=== PATIENT | male | born 1930 | race Caucasian/White ===

== ENCOUNTER 2017-12-20 13:00 | Inpatient (IN) | payer MEDICARE, OTHER ==
[~2017-12-20] VITALS: Ht 162.6 cm; Wt 67.1 kg
[2017-12-20] VITALS (7 sets, daily range): BP systolic 118–164; BP diastolic 47–72
[2017-12-20 13:27] LABS: APPEARANCE,URINE SLIGHTLY CLOUDY; BILIRUBIN, URINE NEGATIVE (NEGATIVE); GLUCOSE, URINE (UA) NEGATIVE (NEGATIVE); KETONES,URINE NEGATIVE (NEGATIVE); LEUKOCYTE ESTERASE ,URINE 3+ (NEGATIVE); NITRITE,URINE POSITIVE (NEGATIVE); PH,URINE 6.5 (4.5-8.0); PROTEIN,URINE 2+ (NEGATIVE); UROBILINOGEN,URINE NORMAL MG/DL (0.0-1.0)
[2017-12-20 13:31] LABS: BASOPHILS % (AUTO) 0.6 % (0.0-2.0); EOSINOPHILS % (AUTO) 0.1 % (0.0-3.0); HEMATOCRIT 36.7 % (42.0-52.0); HEMOGLOBIN 10.4 G/DL (14.2-18.0); LYMPHOCYTES % (AUTO) 8.5 % (20.0-45.0); MEAN CORPUSCULAR VOLUME 73 FL (80-99); MONOCYTES % (AUTO) 6.1 % (1.0-10.0); NEUTROPHILS % (AUTO) 84.7 % (45.0-75.0); PLATELET COUNT 204 K/UL (150-450); RED BLOOD COUNT 5.03 M/UL (4.70-6.10); RED CELL DISTRIBUTION WIDTH 19.6 % (11.6-14.8); WHITE BLOOD COUNT 8.5 K/UL (4.8-10.8)
[2017-12-20 13:34] LABS: COLOR,URINE YELLOW
[2017-12-20 13:40] LABS: ANION GAP 10 mmol/L (5-15); BLOOD UREA NITROGEN 25 mg/dL (7-18); CALCIUM 9.4 MG/DL (8.5-10.1); CARBON DIOXIDE 24 MMOL/L (21-32); CHLORIDE 102 MMOL/L (98-107); CREATININE 1.1 MG/DL (0.55-1.30); POTASSIUM 4.2 MMOL/L (3.5-5.1); SODIUM 136 MMOL/L (136-145)
[2017-12-20] MEDS ORDERED: Acetaminophen 650 MG SUPP RECTAL ONE (13:45)
[2017-12-20] MEDS ORDERED: cefTRIAXone 1 GM in NS 55 ML IVPB ONE (13:45)
[2017-12-20 13:54] LABS: ALANINE AMINOTRANSFERASE 26 U/L (12-78); ALBUMIN 3.1 G/DL (3.4-5.0); ALBUMIN/GLOBULIN RATIO 0.7 (1.0-2.7); ALKALINE PHOSPHATASE 114 U/L (46-116); ASPARTATE AMINO TRANSFERASE 25 U/L (15-37); BILIRUBIN,TOTAL 0.9 MG/DL (0.2-1.0); CKMB 0.5 NG/ML (0.0-3.6); CREATINE KINASE 67 U/L (26-308); PHOSPHORUS 2.9 MG/DL (2.5-4.9)
[2017-12-20] MEDS ORDERED: Morphine Sulfate 2mg/ml Inj IVP PRN (15:15)
[2017-12-20] MEDS ORDERED: Albuterol/Ipratropium 3ml neb HHN PRN (15:15)
[2017-12-20] MEDS ORDERED: Miralax 17gm pkt ORAL PRN (15:15)
--- NOTE | 2017-12-20 15:16 | Diagnostic Imaging Report ---
Indications: Altered level of consciousness Technique: Spiral acquisitions obtained through the brain. Angled axial and coronal 5 x 5 mm slices were reconstructed. Total dose length product 1284.6 mGycm. CTDI vol(s) 70.38 mGy. Dose reduction achieved using automated exposure control Comparison: None. Findings: There is age-related enlargement of the ventricles and extra axial CSF spaces. Cortical calcifications are seen in the parasagittal parietal lobes bilaterally. Old lacunar infarcts are seen in the basal ganglia bilaterally. No definite acute intracranial hemorrhage or edema, mass effect, nor midline shift. There is periventricular deep white matter low-attenuation consistent with chronic ischemic change. The calvarium is intact. The mastoids are clear. There is minimal ethmoid sinus disease. Visualized orbits are unremarkable. Impression: Chronic and age-related changes. Negative for acute intracranial bleed or mass effect Old bilateral basal ganglia lacunar infarcts Calcifications within the bilateral posterior parietal lobes, probably dystrophic The CT scanner at [facility] is accredited by the [employer] and the scans are performed using protocols designed to limit radiation exposure to as low as reasonably achievable to attain images of sufficient resolution adequate for diagnostic evaluation.
[2017-12-20] MEDS ORDERED: AVODART0.5 MG ORAL (15:28)
[2017-12-20] MEDS ORDERED: BICALUTAMIDE50 MG ORAL (15:28)
[2017-12-20] MEDS ORDERED: TAMSULOSIN HCL0.4 MG ORAL (15:28)
[2017-12-20] MEDS ORDERED: NAMENDA5 MG ORAL (15:28)
[2017-12-20] MEDS ORDERED: DONEPEZIL HCL10 MG ORAL (15:28)
[2017-12-20] MEDS ORDERED: SODIUM CHLORID ORAL (15:28)
[2017-12-20] MEDS ORDERED: FOLIC ACID1 MG ORAL (15:28)
[2017-12-20] MEDS ORDERED: VITAMIN E400 UNI8 PO (15:28)
--- NOTE | 2017-12-20 15:41 | Emergency Room Report ---
History of Present Illness General Chief Complaint: Altered Level of Consciousness Source: Patient, EMS Present Illness HPI Patient is brought in from home. His states that he is less responsive than usual this morning. He normally is verbal but with very severe dementia. She states she was nonverbal today. The patient is unable to give any sort of history. There are no other complaints. Allergies: Coded Allergies: No Known Allergies (Unverified , 12/20/17) Patient History Past Medical History: see triage record, HTN, dementia, other - prostate ca Social History: Denies: smoking, alcohol use, drug use Reviewed Nursing Documentation: PMH: Agreed; PSxH: Agreed Nursing Documentation-PMH Past Medical History: No History, Except For Hx Hypertension: Yes Review of Systems All Other Systems: limited Physical Exam Vital Signs Date Time Temp Pulse Resp B/P (MAP) Pulse Ox O2 Delivery O2 Flow Rate FiO2 12/20/17 12:53 97.0 106 20 150/74 99 Room Air 97.0 Sp02 EP Interpretation: reviewed, normal General Appearance: no apparent distress, GCS 15, non-toxic, cachetic, Chronically Ill Head: normocephalic, atraumatic ENT: no angioedema Neck: normal inspection Respiratory: chest non-tender, lungs clear, normal breath sounds, no respiratory distress, no retraction, no accessory muscle use, speaking full sentences Cardiovascular #1: no edema, tachycardia Gastrointestinal: normal bowel sounds, non tender, soft, non-distended, no guarding, no rebound Rectal: deferred Musculoskeletal: normal range of motion Neurologic: grossly normal Skin: warm/dry, well hydrated, other - See RN skin exam Medical Decision Making Diagnostic Impression: Primary Impression: Pyelonephritis Additional Impression: Sepsis ER Course This patient presents with sepsis and pyelonephritis. Was given broad-spectrum antibiotics and aggressive IV fluid resuscitation. He is found to be febrile and altered. The patient's blood pressure remained stable and slightly elevated. Given the patient's age and frailty he could easily decompensate. He is admitted for IV antibiotics, monitoring and further evaluation and treatment. This patient is critically ill. This patient required complex medical decision- making, aggressive intervention, extensive laboratory workup and monitoring. Critical care time: 40 minutes. Laboratory Tests Test 12/20/17 12:40 White Blood Count 8.5 K/UL (4.8-10.8) Red Blood Count 5.03 M/UL (4.70-6.10) Hemoglobin 10.4 G/DL (14.2-18.0) L Hematocrit 36.7 % (42.0-52.0) L Mean Corpuscular Volume 73 FL (80-99) L Mean Corpuscular Hemoglobin 20.8 PG (27.0-31.0) L Mean Corpuscular Hemoglobin Concent 28.5 G/DL (32.0-36.0) L Red Cell Distribution Width 19.6 % (11.6-14.8) H Platelet Count 204 K/UL (150-450) Mean Platelet Volume 6.0 FL (6.5-10.1) L Neutrophils (%) (Auto) 84.7 % (45.0-75.0) H Lymphocytes (%) (Auto) 8.5 % (20.0-45.0) L Monocytes (%) (Auto) 6.1 % (1.0-10.0) Eosinophils (%) (Auto) 0.1 % (0.0-3.0) Basophils (%) (Auto) 0.6 % (0.0-2.0) Prothrombin Time 10.6 SEC (9.30-11.50) Prothrombin Time INR 1.0 (0.9-1.1) PTT 23 SEC (23-33) Urine Color Yellow Urine Appearance Slightly cloudy Urine pH 6.5 (4.5-8.0) Urine Specific [place] 1.010 (1.005-1.035) Urine Protein 2+ (NEGATIVE) H Urine Glucose (UA) Negative (NEGATIVE) Urine Ketones Negative (NEGATIVE) Urine Blood 3+ (NEGATIVE) H Urine Nitrite Positive (NEGATIVE) H Urine Bilirubin Negative (NEGATIVE) Urine Urobilinogen Normal MG/DL (0.0-1.0) Urine Leukocyte Esterase 3+ (NEGATIVE) H Urine RBC 2-4 /HPF (0 - 0) H Urine WBC 60-80 /HPF (0 - 0) H Urine Squamous Epithelial Cells Occasional /LPF Urine Bacteria Many /HPF (NONE) H Sodium Level 136 MMOL/L (136-145) Potassium Level 4.2 MMOL/L (3.5-5.1) Chloride Level 102 MMOL/L (98-107) Carbon Dioxide Level 24 MMOL/L (21-32) Anion Gap 10 mmol/L (5-15) Blood Urea Nitrogen 25 mg/dL (7-18) H Creatinine 1.1 MG/DL (0.55-1.30) Estimate Glomerular Filtration Rate mL/min (>60) Glucose Level 152 MG/DL (74-106) H Lactic Acid Level 1.80 mmol/L (0.4-2.0) Calcium Level 9.4 MG/DL (8.5-10.1) Phosphorus Level 2.9 MG/DL (2.5-4.9) Magnesium Level 2.2 MG/DL (1.8-2.4) Total Bilirubin 0.9 MG/DL (0.2-1.0) Aspartate Amino Transferase (AST) 25 U/L (15-37) Alanine Aminotransferase (ALT) 26 U/L (12-78) Alkaline Phosphatase 114 U/L (46-116) Total Creatine Kinase 67 U/L (26-308) Creatine Kinase MB 0.5 NG/ML (0.0-3.6) Creatine Kinase MB Relative Index 0.7 Troponin I 0.000 ng/mL (0.000-0.056) Total Protein 7.7 G/DL (6.4-8.2) Albumin 3.1 G/DL (3.4-5.0) L Globulin 4.6 g/dL Albumin/Globulin Ratio 0.7 (1.0-2.7) L EKG Diagnostic Results Rate: tachycardiac Rhythm: other - S.tachycardia ST Segments: no acute changes Rhythm Strip Diag. Results EP Interpretation: yes Rate: 110's Rhythm: no PVC's, no ectopy, other - S.tachycardia Chest X-Ray Diagnostic Results Chest X-Ray Diagnostic Results : Chest X-Ray Ordered: Yes # of Views/Limited/Complete: 1 View Indication: Other EP Interpretation: Yes Interpretation: no consolidation, no effusion, no pneumothorax, no acute cardiopulmonary disease Impression: No acute disease Electronically Signed by: Deepa CT/MRI/US Diagnostic Results CT/MRI/US Diagnostic Results : Imaging Test Ordered: CT head Impression No acute findings. Specifically no intracranial bleed, mass effect or edema. See official report. Last Vital Signs Date Time Temp Pulse Resp B/P (MAP) Pulse Ox O2 Delivery O2 Flow Rate FiO2 12/20/17 14:31 101 21 12/20/17 13:52 101.9 12/20/17 13:08 150/47 99 Room Air Disposition: ADMITTED INPATIENT Condition: Serious Referrals: NOT CHOSEN IPA/,REFERRING (PCP) Elham Conley DO Dec 20, 2017 15:41
--- NOTE | 2017-12-20 15:55 | Diagnostic Imaging Report ---
Indication: Cough Technique: One view of the chest Comparison: Findings: Lungs and pleural spaces are clear. Heart size is normal . There are degenerative changes of the thoracic spine. Impression: No acute process
[2017-12-20] MEDS ORDERED: Cefepime HCl 2 GM in D5W 110 ML IV SCH (17:00)
[2017-12-20] MEDS ORDERED: Acetaminophen 650 MG SUPP RECTAL PRN (17:15)
--- NOTE | 2017-12-20 17:53 | History & Physical ---
History and Physical History & Physicial Dictated for Int Med-Dr Kirk no. [id number] Kishan Padgett MD Dec 20, 2017 17:53
[2017-12-20] MEDS ORDERED: PROAIR HFA8.5 GM INH (17:55)
[2017-12-20] MEDS: Vancomycin 500mg/D5W 110ml IVPB SCH ×2 (18:47)
[2017-12-20] MEDS: Heparin 5000 units/ml inj SUBQ SCH (21:33)
--- NOTE | 2017-12-20 23:00 | History and Physical Report ---
DATE OF ADMISSION: 12/20/2017 CHIEF COMPLAINT: The patient is an 87-year-old white male, who presents with chief complaint of altered mental status. HISTORY OF PRESENT ILLNESS: The patient is brought in by his . The patient's states he has been less responsive than usual today. The patient himself is unable to contribute much to the history and physical. An initial evaluation revealed urinary tract infection and fever up to 101.9 degrees Fahrenheit. The patient is admitted with fever and urinary tract infection to rule out sepsis. REVIEW OF SYSTEMS: Unable to assess secondary to the patient's mental status. PAST MEDICAL HISTORY: Significant for: 1. Hypertension. 2. Alzheimer dementia. 3. History of prostate cancer. PAST SURGICAL HISTORY: Unknown. CURRENT MEDICATIONS: 1. Bicalutamide 50 mg p.o. daily. 2. Aricept 10 mg p.o. daily. 3. Avodart 0.5 mg p.o. daily. 4. Folic acid 1 mg p.o. twice daily. 5. Namenda 28 mg p.o. nightly. 6. Flomax 0.4 mg p.o. nightly. ALLERGIES: No known drug allergies. SOCIAL HISTORY: The patient is and lives at home with his . The patient denies tobacco or alcohol use. PHYSICAL EXAMINATION: VITAL SIGNS: Temperature 101.9, respirations 28, pulse 101, blood pressure 150/47. GENERAL: The patient is a well-developed, well-nourished white male, in no apparent distress. HEENT: Eyes, pupils equal and responsive to light and accommodation. Extraocular movements are intact. NECK: Supple without lymphadenopathy. CHEST: Lungs are clear to auscultation bilaterally without wheezes or rales. CARDIOVASCULAR: Regular rate. S1, S2 normal without murmurs, rubs, or gallops. ABDOMEN: Soft, nontender, and nondistended. Positive bowel sounds. No evidence of hepatosplenomegaly. Currently, no rebound or guarding noted. EXTREMITIES: Negative for clubbing, cyanosis, or edema. RECTAL: Refused. GENITAL: Refused. NEUROLOGIC: Cranial nerves II through XII are grossly intact without focal deficits. Motor strength is 5/5 bilaterally intact. Deep tendon reflexes are 2+, plantar. LABORATORY STUDIES: WBC 8.5, hemoglobin 10.4, hematocrit 36.7, platelets 204,000. Sodium 136, potassium 4.2, chloride 102, BUN 25, creatinine 1.1, glucose 152. Troponin 0.0. Urinalysis showed 2+ protein, 3+ blood, nitrite positive with 60-80 wbc. ASSESSMENT: This is an 87-year-old white male with: 1. Altered mental status. 2. Fever. 3. Urinary tract infection. 4. Hypertension. 5. Alzheimer dementia. TREATMENT: 1. Altered mental status/fever/urinary tract infection. The patient has been started empirically on vancomycin and cefepime. Urine culture is pending. We will await urine culture results. 2. Altered mental status is probably secondary to fever and urinary tract infection as above. 3. Hypertension. Continue bicalutamide as above. 4. Alzheimer dementia. Continue Namenda and Aricept as above. Kishan Padgett M.D. DR: Gavin JOB#: [id number] CC:
--- NOTE | 2017-12-20 23:01 | Consultation ---
History of Present Illness General Chief Complaint: Altered Level of Consciousness Present Illness HPI 87-year-old white male, who presents with chief complaint of altered mental status. the pt is pw waxing and waning of consciousness and has poor memory not able to provide hx. Allergies: Coded Allergies: No Known Allergies (Unverified , 12/20/17) Medication History Scheduled Albuterol Sulfate* (Proair Hfa*), 2 PUFFS INH Q6H, (Reported) Bicalutamide* (Bicalutamide*), 50 MG ORAL DAILY, (Reported) Donepezil Hcl* (Donepezil Hcl*), 10 MG ORAL DAILY, (Reported) Dutasteride (Avodart), 0.5 MG ORAL DAILY, (Reported) Folic Acid* (Folic Acid*), 1 MG ORAL BID, (Reported) Levofloxacin (Levofloxacin*), 750 MG ORAL DAILY Memantine Hcl* (Namenda*), 28 MG ORAL HS, (Reported) Sodium Chloride (Sodium Chloride), 1,000 GM ORAL DAILY, (Reported) Tamsulosin Hcl (Tamsulosin Hcl*), 0.4 MG ORAL BEDTIME, (Reported) Vitamin E Mixed (Vitamin E), 400 UNIT PO BID, (Reported) Patient History History Provided By: Medical Record, PMD Healthcare decision maker Resuscitation status Full Code Advanced Directive on File Past Medical/Surgical History Past Medical/Surgical History: (1) Dementia (2) Chronic anemia (3) Alzheimer disease (4) UTI (urinary tract infection) (5) Altered mental status (6) HTN (hypertension) (7) COPD (chronic obstructive pulmonary disease) (8) Prostate cancer Review of Systems Psychiatric: Reports: prior hx, anxiety, depressed feelings, hallucinations Physical Exam General Appearance: lethargic, confused, agitated Last 24 Hour Vital Signs Date Time Temp Pulse Resp B/P (MAP) Pulse Ox O2 Delivery O2 Flow Rate FiO2 12/20/17 19:47 97 20 Room Air 21 12/20/17 18:11 99.1 12/20/17 17:50 102.7 117 21 130/48 94 Room Air 12/20/17 17:41 102.7 12/20/17 17:40 102.7 117 21 130/48 94 Room Air 102.7 12/20/17 16:30 123 25 148/52 95 Room Air 12/20/17 15:15 101.2 10 21 164/61 Room Air 101.2 12/20/17 14:31 101 21 12/20/17 14:00 20 140/48 98 Room Air 12/20/17 13:52 101.9 12/20/17 13:08 101.9 101 20 150/47 99 Room Air 101.9 12/20/17 12:53 97.0 106 20 150/74 99 Room Air 97.0 Laboratory Tests Test 12/20/17 12:40 White Blood Count 8.5 K/UL (4.8-10.8) Red Blood Count 5.03 M/UL (4.70-6.10) Hemoglobin 10.4 G/DL (14.2-18.0) L Hematocrit 36.7 % (42.0-52.0) L Mean Corpuscular Volume 73 FL (80-99) L Mean Corpuscular Hemoglobin 20.8 PG (27.0-31.0) L Mean Corpuscular Hemoglobin Concent 28.5 G/DL (32.0-36.0) L Red Cell Distribution Width 19.6 % (11.6-14.8) H Platelet Count 204 K/UL (150-450) Mean Platelet Volume 6.0 FL (6.5-10.1) L Neutrophils (%) (Auto) 84.7 % (45.0-75.0) H Lymphocytes (%) (Auto) 8.5 % (20.0-45.0) L Monocytes (%) (Auto) 6.1 % (1.0-10.0) Eosinophils (%) (Auto) 0.1 % (0.0-3.0) Basophils (%) (Auto) 0.6 % (0.0-2.0) Prothrombin Time 10.6 SEC (9.30-11.50) Prothromb Time International Ratio 1.0 (0.9-1.1) Activated Partial Thromboplast Time 23 SEC (23-33) Urine Color Yellow Urine Appearance Slightly cloudy Urine pH 6.5 (4.5-8.0) Urine Specific [place] 1.010 (1.005-1.035) Urine Protein 2+ (NEGATIVE) H Urine Glucose (UA) Negative (NEGATIVE) Urine Ketones Negative (NEGATIVE) Urine Blood 3+ (NEGATIVE) H Urine Nitrite Positive (NEGATIVE) H Urine Bilirubin Negative (NEGATIVE) Urine Urobilinogen Normal MG/DL (0.0-1.0) Urine Leukocyte Esterase 3+ (NEGATIVE) H Urine RBC 2-4 /HPF (0 - 0) H Urine WBC 60-80 /HPF (0 - 0) H Urine Squamous Epithelial Cells Occasional /LPF Urine Bacteria Many /HPF (NONE) H Sodium Level 136 MMOL/L (136-145) Potassium Level 4.2 MMOL/L (3.5-5.1) Chloride Level 102 MMOL/L (98-107) Carbon Dioxide Level 24 MMOL/L (21-32) Anion Gap 10 mmol/L (5-15) Blood Urea Nitrogen 25 mg/dL (7-18) H Creatinine 1.1 MG/DL (0.55-1.30) Estimat Glomerular Filtration Rate mL/min (>60) Glucose Level 152 MG/DL (74-106) H Lactic Acid Level 1.80 mmol/L (0.4-2.0) Calcium Level 9.4 MG/DL (8.5-10.1) Phosphorus Level 2.9 MG/DL (2.5-4.9) Magnesium Level 2.2 MG/DL (1.8-2.4) Total Bilirubin 0.9 MG/DL (0.2-1.0) Aspartate Amino Transf (AST/SGOT) 25 U/L (15-37) Alanine Aminotransferase (ALT/SGPT) 26 U/L (12-78) Alkaline Phosphatase 114 U/L (46-116) Total Creatine Kinase 67 U/L (26-308) Creatine Kinase MB 0.5 NG/ML (0.0-3.6) Creatine Kinase MB Relative Index 0.7 Troponin I 0.000 ng/mL (0.000-0.056) Total Protein 7.7 G/DL (6.4-8.2) Albumin 3.1 G/DL (3.4-5.0) L Globulin 4.6 g/dL Albumin/Globulin Ratio 0.7 (1.0-2.7) L Height (Feet): 5 Height (Inches): 4.00 Weight (Pounds): 148 Medications Current Medications Medications (Trade) Dose Ordered Sig/Margarita Route PRN Reason Start Time Stop Time Status Last Admin Dose Admin Acetaminophen (Tylenol) 650 mg Q4H PRN ORAL fever 12/20/17 15:15 01/19/18 15:14 Acetaminophen (Tylenol) 650 mg Q4H PRN RECTAL Mild Pain (Pain Scale 1-3) 12/20/17 17:15 01/19/18 17:14 12/20/17 17:41 Albuterol/ Ipratropium (Albuterol/ Ipratropium) 3 ml Q4H PRN HHN Shortness of Breath 12/20/17 15:15 12/25/17 15:14 Cefepime HCl 2 gm/ Dextrose 110 ml @ 220 mls/hr Q24H IV 12/20/17 17:00 12/27/17 16:59 12/20/17 17:31 Heparin Sodium (Porcine) (Heparin 5000 units/ml) 5,000 units EVERY 12 HOURS SUBQ 12/20/17 21:00 01/19/18 20:59 12/20/17 21:33 Morphine Sulfate (Morphine Sulfate) 2 mg Q4H PRN IVP Moderate Pain (Pain Scale 4-6) 12/20/17 15:15 12/27/17 15:14 Ondansetron HCl (Zofran) 4 mg Q6H PRN IVP Nausea & Vomiting 12/20/17 15:15 01/19/18 15:14 Phenazopyridine HCl (Pyridium) 100 mg DAILY PRN ORAL dysuria 12/20/17 15:15 01/19/18 15:14 Polyethylene Glycol (Miralax) 17 gm DAILYPRN PRN ORAL Constipation 12/20/17 15:15 01/19/18 15:14 Temazepam (Restoril) 15 mg HSPRN PRN ORAL Insomnia 12/20/17 15:15 12/27/17 15:14 Vancomycin HCl (Vanco rx to dose) 1 ea DAILY PRN MISC VANCO PER PHARMACY 12/20/17 16:15 01/19/18 16:14 Vancomycin HCl 500 mg/Dextrose 110 ml @ 110 mls/hr Q12H IVPB 12/20/17 18:00 12/25/17 17:59 12/20/17 18:47 Assessment/Plan Assessment/Plan 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
[2017-12-21] VITALS (7 sets, daily range): BP systolic 108–152; BP diastolic 56–84
[2017-12-21] MEDS ORDERED: Vancomycin 1 GM in D5W 275 ML IV SCH (00:30)
[2017-12-21] MEDS: Vancomycin 500mg/D5W 110ml IVPB SCH ×2 (06:09)
[2017-12-21 07:47] LABS: HEMATOCRIT 26.6 % (42.0-52.0); HEMOGLOBIN 7.9 G/DL (14.2-18.0); MEAN CORPUSCULAR VOLUME 71 FL (80-99); PLATELET COUNT 154 K/UL (150-450); RED BLOOD COUNT 3.74 M/UL (4.70-6.10); RED CELL DISTRIBUTION WIDTH 19.1 % (11.6-14.8); WHITE BLOOD COUNT 7.6 K/UL (4.8-10.8)
[2017-12-21 08:03] LABS: ALANINE AMINOTRANSFERASE 21 U/L (12-78); ALBUMIN 2.4 G/DL (3.4-5.0); ALBUMIN/GLOBULIN RATIO 0.6 (1.0-2.7); ALKALINE PHOSPHATASE 91 U/L (46-116); ANION GAP 8 mmol/L (5-15); ASPARTATE AMINO TRANSFERASE 21 U/L (15-37); BILIRUBIN,TOTAL 0.7 MG/DL (0.2-1.0); BLOOD UREA NITROGEN 23 mg/dL (7-18); CALCIUM 8.5 MG/DL (8.5-10.1); CARBON DIOXIDE 25 MMOL/L (21-32); CHLORIDE 107 MMOL/L (98-107); POTASSIUM 3.8 MMOL/L (3.5-5.1); SODIUM 140 MMOL/L (136-145)
[2017-12-21] MEDS: Heparin 5000 units/ml inj SUBQ SCH ×2 (09:37→20:49)
--- NOTE | 2017-12-21 10:50 | Consultation ---
History of Present Illness General Date patient seen: Dec 21, 2017 Chief Complaint: Altered Level of Consciousness Present Illness HPI 87 year old male with hx HTN, dementia, prostate cancer brought in from home because he became less responsive. He normally is verbal but became nonverbal. The patient is unable to give any sort of history. He was diagnosed to have urosepsis and severe anemia and admitted for further work up. The is at the bed site who gives the history. Pt has chronic anemia and needed blood transfusions in the past. He is mostly bed bound and stopped walking for the last one year. Allergies: Coded Allergies: No Known Allergies (Unverified , 12/20/17) Patient History Past Medical History: see triage record, Allergies: Coded Allergies: No Known Allergies (Unverified , 12/20/17) Medication History Scheduled Albuterol Sulfate* (Proair Hfa*), 2 PUFFS INH Q6H, (Reported) Bicalutamide* (Bicalutamide*), 50 MG ORAL DAILY, (Reported) Donepezil Hcl* (Donepezil Hcl*), 10 MG ORAL DAILY, (Reported) Dutasteride (Avodart), 0.5 MG ORAL DAILY, (Reported) Folic Acid* (Folic Acid*), 1 MG ORAL BID, (Reported) Memantine Hcl* (Namenda*), 28 MG ORAL HS, (Reported) Sodium Chloride (Sodium Chloride), 1,000 GM ORAL DAILY, (Reported) Tamsulosin Hcl (Tamsulosin Hcl*), 0.4 MG ORAL BEDTIME, (Reported) Vitamin E Mixed (Vitamin E), 400 UNIT PO BID, (Reported) Patient History Healthcare decision maker Resuscitation status Full Code Advanced Directive on File Past Medical/Surgical History Past Medical/Surgical History: (1) Dementia (2) Chronic anemia (3) COPD (chronic obstructive pulmonary disease) (4) Prostate cancer Review of Systems Constitutional: Reports: malaise, weakness Eye: Reports: no symptoms ENT: Reports: no symptoms Respiratory: Reports: no symptoms All Other Systems: negative except mentioned in HPI Physical Exam General Appearance: no apparent distress, cachetic Lines, tubes and drains: peripheral HEENT: normocephalic, atraumatic Neck: non-tender, normal alignment Respiratory/Chest: chest wall non-tender, lungs clear Cardiovascular/Chest: normal peripheral pulses, normal rate Abdomen: normal bowel sounds, non tender Neurologic: disoriented, aphasia Last 24 Hour Vital Signs Date Time Temp Pulse Resp B/P (MAP) Pulse Ox O2 Delivery O2 Flow Rate FiO2 12/21/17 08:00 97.8 99 20 143/67 (92) 98 97.8 12/21/17 04:00 91 12/21/17 04:00 98.2 93 18 108/66 (80) 98 98.2 12/21/17 00:00 97.5 90 18 139/84 (102) 98 97.5 12/21/17 00:00 79 12/20/17 20:00 96 12/20/17 20:00 98.2 94 22 118/72 (87) 97 98.2 12/20/17 19:47 97 20 Room Air 21 12/20/17 19:00 Room Air 12/20/17 18:11 99.1 12/20/17 17:50 102.7 117 21 130/48 94 Room Air 12/20/17 17:41 102.7 12/20/17 17:40 102.7 117 21 130/48 94 Room Air 102.7 12/20/17 16:30 123 25 148/52 95 Room Air 12/20/17 15:15 101.2 10 21 164/61 Room Air 101.2 12/20/17 14:31 101 21 12/20/17 14:00 20 140/48 98 Room Air 12/20/17 13:52 101.9 12/20/17 13:08 101.9 101 20 150/47 99 Room Air 101.9 12/20/17 12:53 97.0 106 20 150/74 99 Room Air 97.0 Intake and Output 12/20/17 12/21/17 19:00 07:00 Intake Total 0 ml Output Total 200 ml Balance -200 ml Intake Oral 0 ml Output Urine Total 200 ml # Voids 2 # Bowel Movements 2 1 Laboratory Tests Test 12/20/17 12:40 12/21/17 07:20 White Blood Count 8.5 K/UL (4.8-10.8) 7.6 K/UL (4.8-10.8) Red Blood Count 5.03 M/UL (4.70-6.10) 3.74 M/UL (4.70-6.10) L Hemoglobin 10.4 G/DL (14.2-18.0) L 7.9 G/DL (14.2-18.0) L Hematocrit 36.7 % (42.0-52.0) L 26.6 % (42.0-52.0) L Mean Corpuscular Volume 73 FL (80-99) L 71 FL (80-99) L Mean Corpuscular Hemoglobin 20.8 PG (27.0-31.0) L 21.1 PG (27.0-31.0) L Mean Corpuscular Hemoglobin Concent 28.5 G/DL (32.0-36.0) L 29.6 G/DL (32.0-36.0) L Red Cell Distribution Width 19.6 % (11.6-14.8) H 19.1 % (11.6-14.8) H Platelet Count 204 K/UL (150-450) 154 K/UL (150-450) Mean Platelet Volume 6.0 FL (6.5-10.1) L 6.5 FL (6.5-10.1) Neutrophils (%) (Auto) 84.7 % (45.0-75.0) H % (45.0-75.0) Lymphocytes (%) (Auto) 8.5 % (20.0-45.0) L % (20.0-45.0) Monocytes (%) (Auto) 6.1 % (1.0-10.0) % (1.0-10.0) Eosinophils (%) (Auto) 0.1 % (0.0-3.0) % (0.0-3.0) Basophils (%) (Auto) 0.6 % (0.0-2.0) % (0.0-2.0) Prothrombin Time 10.6 SEC (9.30-11.50) Prothromb Time International Ratio 1.0 (0.9-1.1) Activated Partial Thromboplast Time 23 SEC (23-33) Urine Color Yellow Urine Appearance Slightly cloudy Urine pH 6.5 (4.5-8.0) Urine Specific [place] 1.010 (1.005-1.035) Urine Protein 2+ (NEGATIVE) H Urine Glucose (UA) Negative (NEGATIVE) Urine Ketones Negative (NEGATIVE) Urine Blood 3+ (NEGATIVE) H Urine Nitrite Positive (NEGATIVE) H Urine Bilirubin Negative (NEGATIVE) Urine Urobilinogen Normal MG/DL (0.0-1.0) Urine Leukocyte Esterase 3+ (NEGATIVE) H Urine RBC 2-4 /HPF (0 - 0) H Urine WBC 60-80 /HPF (0 - 0) H Urine Squamous Epithelial Cells Occasional /LPF Urine Bacteria Many /HPF (NONE) H Sodium Level 136 MMOL/L (136-145) 140 MMOL/L (136-145) Potassium Level 4.2 MMOL/L (3.5-5.1) 3.8 MMOL/L (3.5-5.1) Chloride Level 102 MMOL/L (98-107) 107 MMOL/L (98-107) Carbon Dioxide Level 24 MMOL/L (21-32) 25 MMOL/L (21-32) Anion Gap 10 mmol/L (5-15) 8 mmol/L (5-15) Blood Urea Nitrogen 25 mg/dL (7-18) H 23 mg/dL (7-18) H Creatinine 1.1 MG/DL (0.55-1.30) 1.0 MG/DL (0.55-1.30) Estimat Glomerular Filtration Rate mL/min (>60) mL/min (>60) Glucose Level 152 MG/DL (74-106) H 134 MG/DL (74-106) H Lactic Acid Level 1.80 mmol/L (0.4-2.0) Calcium Level 9.4 MG/DL (8.5-10.1) 8.5 MG/DL (8.5-10.1) Phosphorus Level 2.9 MG/DL (2.5-4.9) Magnesium Level 2.2 MG/DL (1.8-2.4) Total Bilirubin 0.9 MG/DL (0.2-1.0) 0.7 MG/DL (0.2-1.0) Aspartate Amino Transf (AST/SGOT) 25 U/L (15-37) 21 U/L (15-37) Alanine Aminotransferase (ALT/SGPT) 26 U/L (12-78) 21 U/L (12-78) Alkaline Phosphatase 114 U/L (46-116) 91 U/L (46-116) Total Creatine Kinase 67 U/L (26-308) Creatine Kinase MB 0.5 NG/ML (0.0-3.6) Creatine Kinase MB Relative Index 0.7 Troponin I 0.000 ng/mL (0.000-0.056) Total Protein 7.7 G/DL (6.4-8.2) 6.3 G/DL (6.4-8.2) L Albumin 3.1 G/DL (3.4-5.0) L 2.4 G/DL (3.4-5.0) L Globulin 4.6 g/dL 3.9 g/dL Albumin/Globulin Ratio 0.7 (1.0-2.7) L 0.6 (1.0-2.7) L Neutrophils % (Manual) Pending Lymphocytes % (Manual) Pending Platelet Estimate Pending Platelet Morphology Pending Prostate Specific Antigen Pending Microbiology Date/Time Source Procedure Growth Status 12/20/17 12:40 Urine,Clean Catch Urine Culture - Preliminary Gram Negative Bacillus 1 Resulted Height (Feet): 5 Height (Inches): 4.00 Weight (Pounds): 148 Medications Current Medications Medications (Trade) Dose Ordered Sig/Margarita Route PRN Reason Start Time Stop Time Status Last Admin Dose Admin Acetaminophen (Tylenol) 650 mg Q4H PRN ORAL fever 12/20/17 15:15 01/19/18 15:14 Acetaminophen (Tylenol) 650 mg Q4H PRN RECTAL Mild Pain (Pain Scale 1-3) 12/20/17 17:15 01/19/18 17:14 12/20/17 17:41 Albuterol/ Ipratropium (Albuterol/ Ipratropium) 3 ml Q4H PRN HHN Shortness of Breath 12/20/17 15:15 12/25/17 15:14 Cefepime HCl 2 gm/ Dextrose 110 ml @ 220 mls/hr Q24H IV 12/20/17 17:00 12/27/17 16:59 12/20/17 17:31 Heparin Sodium (Porcine) (Heparin 5000 units/ml) 5,000 units EVERY 12 HOURS SUBQ 12/20/17 21:00 01/19/18 20:59 12/21/17 09:37 Morphine Sulfate (Morphine Sulfate) 2 mg Q4H PRN IVP Moderate Pain (Pain Scale 4-6) 12/20/17 15:15 12/27/17 15:14 Ondansetron HCl (Zofran) 4 mg Q6H PRN IVP Nausea & Vomiting 12/20/17 15:15 01/19/18 15:14 Phenazopyridine HCl (Pyridium) 100 mg DAILY PRN ORAL dysuria 12/20/17 15:15 01/19/18 15:14 Polyethylene Glycol (Miralax) 17 gm DAILYPRN PRN ORAL Constipation 12/20/17 15:15 01/19/18 15:14 Temazepam (Restoril) 15 mg HSPRN PRN ORAL Insomnia 12/20/17 15:15 12/27/17 15:14 Vancomycin HCl (Vanco rx to dose) 1 ea DAILY PRN MISC VANCO PER PHARMACY 12/20/17 16:15 01/19/18 16:14 Vancomycin HCl 500 mg/Dextrose 110 ml @ 110 mls/hr Q12H IVPB 12/20/17 18:00 12/25/17 17:59 12/21/17 06:09 Assessment/Plan Problem List: (1) Sepsis ICD Codes: A41.9 - Sepsis, unspecified organism SNOMED: 61061867 (2) Pyelonephritis ICD Codes: N12 - Tubulo-interstitial nephritis, not specified as acute or chronic SNOMED: 24058298 (3) COPD (chronic obstructive pulmonary disease) ICD Codes: J44.9 - Chronic obstructive pulmonary disease, unspecified SNOMED: 96802964 (4) Prostate cancer ICD Codes: C61 - Malignant neoplasm of prostate SNOMED: 434382665 (5) Dementia ICD Codes: F03.90 - Unspecified dementia without behavioral disturbance SNOMED: 05711550 (6) Chronic anemia ICD Codes: D64.9 - Anemia, unspecified SNOMED: 540598861 Assessment/Plan iv abx iv fluids check cultures prbc anemia w/u iron studies check PSA/ dvt prophylaxis. Marisol Purdy MD Dec 21, 2017 10:50
--- NOTE | 2017-12-21 12:36 | Consultation ---
History of Present Illness General Date patient seen: Dec 21, 2017 Chief Complaint: Altered Level of Consciousness Reason for Consultation: UTI Present Illness HPI Mr. Hardwick is a 87 yo male with PMHx of Prostate CA, Alzheimers, HTN and recurrent UTIs who presented the ED on 12/20/17 with UTI and fever of 101. The patient was having fevers and increased AMS at home to he was brought to the [facility] by his family. I Spoke with his son who reports that he had and multiple UTI over the last few years after getting radiation Tx for his prostate CA.. He does not know off the top of his head what organisms he grew in the past. In the ED he had a fever up 102.7 and a positive UA. The urine culture is now growing GNR. ID was consulted for UTI. PMHx/ PSHx Prostate CA with radiation Tx Alzheimers HTN Recurrent UTIs SocHx Live at home with No E/T FamHx Unable to obtain secondary to AMS of patient. Allergies: Coded Allergies: No Known Allergies (Unverified , 12/20/17) Medication History Scheduled Albuterol Sulfate* (Proair Hfa*), 2 PUFFS INH Q6H, (Reported) Bicalutamide* (Bicalutamide*), 50 MG ORAL DAILY, (Reported) Donepezil Hcl* (Donepezil Hcl*), 10 MG ORAL DAILY, (Reported) Dutasteride (Avodart), 0.5 MG ORAL DAILY, (Reported) Folic Acid* (Folic Acid*), 1 MG ORAL BID, (Reported) Memantine Hcl* (Namenda*), 28 MG ORAL HS, (Reported) Sodium Chloride (Sodium Chloride), 1,000 GM ORAL DAILY, (Reported) Tamsulosin Hcl (Tamsulosin Hcl*), 0.4 MG ORAL BEDTIME, (Reported) Vitamin E Mixed (Vitamin E), 400 UNIT PO BID, (Reported) Patient History Healthcare decision maker Resuscitation status Full Code Advanced Directive on File Review of Systems All Other Systems: negative except mentioned in HPI ROS Narrative ROS Unable to fully obtain secondary to AMS of patient. Physical Exam Last 24 Hour Vital Signs Date Time Temp Pulse Resp B/P (MAP) Pulse Ox O2 Delivery O2 Flow Rate FiO2 12/21/17 12:04 97.8 99 20 120/56 (77) 95 97.8 12/21/17 09:00 Room Air 12/21/17 08:00 97.8 99 20 143/67 (92) 98 97.8 12/21/17 04:00 91 12/21/17 04:00 98.2 93 18 108/66 (80) 98 98.2 12/21/17 00:00 97.5 90 18 139/84 (102) 98 97.5 12/21/17 00:00 79 12/20/17 20:00 96 12/20/17 20:00 98.2 94 22 118/72 (87) 97 98.2 12/20/17 19:47 97 20 Room Air 21 12/20/17 19:00 Room Air 12/20/17 18:11 99.1 12/20/17 17:50 102.7 117 21 130/48 94 Room Air 12/20/17 17:41 102.7 12/20/17 17:40 102.7 117 21 130/48 94 Room Air 102.7 12/20/17 16:30 123 25 148/52 95 Room Air 12/20/17 15:15 101.2 10 21 164/61 Room Air 101.2 12/20/17 14:31 101 21 12/20/17 14:00 20 140/48 98 Room Air 12/20/17 13:52 101.9 12/20/17 13:08 101.9 101 20 150/47 99 Room Air 101.9 12/20/17 12:53 97.0 106 20 150/74 99 Room Air 97.0 Intake and Output 12/20/17 12/21/17 19:00 07:00 Intake Total 0 ml Output Total 200 ml Balance -200 ml Intake Oral 0 ml Output Urine Total 200 ml # Voids 2 # Bowel Movements 2 1 Laboratory Tests Test 12/20/17 12:40 12/21/17 07:20 White Blood Count 8.5 K/UL (4.8-10.8) 7.6 K/UL (4.8-10.8) Red Blood Count 5.03 M/UL (4.70-6.10) 3.74 M/UL (4.70-6.10) L Hemoglobin 10.4 G/DL (14.2-18.0) L 7.9 G/DL (14.2-18.0) L Hematocrit 36.7 % (42.0-52.0) L 26.6 % (42.0-52.0) L Mean Corpuscular Volume 73 FL (80-99) L 71 FL (80-99) L Mean Corpuscular Hemoglobin 20.8 PG (27.0-31.0) L 21.1 PG (27.0-31.0) L Mean Corpuscular Hemoglobin Concent 28.5 G/DL (32.0-36.0) L 29.6 G/DL (32.0-36.0) L Red Cell Distribution Width 19.6 % (11.6-14.8) H 19.1 % (11.6-14.8) H Platelet Count 204 K/UL (150-450) 154 K/UL (150-450) Mean Platelet Volume 6.0 FL (6.5-10.1) L 6.5 FL (6.5-10.1) Neutrophils (%) (Auto) 84.7 % (45.0-75.0) H % (45.0-75.0) Lymphocytes (%) (Auto) 8.5 % (20.0-45.0) L % (20.0-45.0) Monocytes (%) (Auto) 6.1 % (1.0-10.0) % (1.0-10.0) Eosinophils (%) (Auto) 0.1 % (0.0-3.0) % (0.0-3.0) Basophils (%) (Auto) 0.6 % (0.0-2.0) % (0.0-2.0) Prothrombin Time 10.6 SEC (9.30-11.50) Prothromb Time International Ratio 1.0 (0.9-1.1) Activated Partial Thromboplast Time 23 SEC (23-33) Urine Color Yellow Urine Appearance Slightly cloudy Urine pH 6.5 (4.5-8.0) Urine Specific [place] 1.010 (1.005-1.035) Urine Protein 2+ (NEGATIVE) H Urine Glucose (UA) Negative (NEGATIVE) Urine Ketones Negative (NEGATIVE) Urine Blood 3+ (NEGATIVE) H Urine Nitrite Positive (NEGATIVE) H Urine Bilirubin Negative (NEGATIVE) Urine Urobilinogen Normal MG/DL (0.0-1.0) Urine Leukocyte Esterase 3+ (NEGATIVE) H Urine RBC 2-4 /HPF (0 - 0) H Urine WBC 60-80 /HPF (0 - 0) H Urine Squamous Epithelial Cells Occasional /LPF Urine Bacteria Many /HPF (NONE) H Sodium Level 136 MMOL/L (136-145) 140 MMOL/L (136-145) Potassium Level 4.2 MMOL/L (3.5-5.1) 3.8 MMOL/L (3.5-5.1) Chloride Level 102 MMOL/L (98-107) 107 MMOL/L (98-107) Carbon Dioxide Level 24 MMOL/L (21-32) 25 MMOL/L (21-32) Anion Gap 10 mmol/L (5-15) 8 mmol/L (5-15) Blood Urea Nitrogen 25 mg/dL (7-18) H 23 mg/dL (7-18) H Creatinine 1.1 MG/DL (0.55-1.30) 1.0 MG/DL (0.55-1.30) Estimat Glomerular Filtration Rate mL/min (>60) mL/min (>60) Glucose Level 152 MG/DL (74-106) H 134 MG/DL (74-106) H Lactic Acid Level 1.80 mmol/L (0.4-2.0) Calcium Level 9.4 MG/DL (8.5-10.1) 8.5 MG/DL (8.5-10.1) Phosphorus Level 2.9 MG/DL (2.5-4.9) Magnesium Level 2.2 MG/DL (1.8-2.4) Total Bilirubin 0.9 MG/DL (0.2-1.0) 0.7 MG/DL (0.2-1.0) Aspartate Amino Transf (AST/SGOT) 25 U/L (15-37) 21 U/L (15-37) Alanine Aminotransferase (ALT/SGPT) 26 U/L (12-78) 21 U/L (12-78) Alkaline Phosphatase 114 U/L (46-116) 91 U/L (46-116) Total Creatine Kinase 67 U/L (26-308) Creatine Kinase MB 0.5 NG/ML (0.0-3.6) Creatine Kinase MB Relative Index 0.7 Troponin I 0.000 ng/mL (0.000-0.056) Total Protein 7.7 G/DL (6.4-8.2) 6.3 G/DL (6.4-8.2) L Albumin 3.1 G/DL (3.4-5.0) L 2.4 G/DL (3.4-5.0) L Globulin 4.6 g/dL 3.9 g/dL Albumin/Globulin Ratio 0.7 (1.0-2.7) L 0.6 (1.0-2.7) L Differential Total Cells Counted 100 Neutrophils % (Manual) 85 % (45-75) H Lymphocytes % (Manual) 8 % (20-45) L Monocytes % (Manual) 5 % (1-10) Eosinophils % (Manual) 0 % (0-3) Basophils % (Manual) 0 % (0-2) Band Neutrophils 2 % (0-8) Platelet Estimate Adequate Platelet Morphology Normal Hypochromasia 2+ Anisocytosis 2+ Microcytosis 2+ Ovalocytes Occasional Prostate Specific Antigen 316.45 ng/mL (0.13-4.0) H Microbiology Date/Time Source Procedure Growth Status 12/20/17 13:00 Blood Blood Culture - Preliminary Resulted 12/20/17 12:40 Blood Blood Culture - Preliminary Resulted 12/20/17 12:40 Urine,Clean Catch Urine Culture - Preliminary Gram Negative Bacillus 1 Resulted Height (Feet): 5 Height (Inches): 4.00 Weight (Pounds): 148 Medications Current Medications Medications (Trade) Dose Ordered Sig/Margarita Route PRN Reason Start Time Stop Time Status Last Admin Dose Admin Acetaminophen (Tylenol) 650 mg Q4H PRN ORAL fever 12/20/17 15:15 01/19/18 15:14 Acetaminophen (Tylenol) 650 mg Q4H PRN RECTAL Mild Pain (Pain Scale 1-3) 12/20/17 17:15 01/19/18 17:14 12/20/17 17:41 Albuterol/ Ipratropium (Albuterol/ Ipratropium) 3 ml Q4H PRN HHN Shortness of Breath 12/20/17 15:15 12/25/17 15:14 Cefepime HCl 2 gm/ Dextrose 110 ml @ 220 mls/hr Q24H IV 12/20/17 17:00 12/27/17 16:59 12/20/17 17:31 Donepezil HCl (Aricept) 10 mg DAILY ORAL 12/22/17 09:00 01/21/18 08:59 Heparin Sodium (Porcine) (Heparin 5000 units/ml) 5,000 units EVERY 12 HOURS SUBQ 12/20/17 21:00 01/19/18 20:59 12/21/17 09:37 Memantine (Namenda) 10 mg BID ORAL 12/21/17 18:00 01/20/18 17:59 Morphine Sulfate (Morphine Sulfate) 2 mg Q4H PRN IVP Moderate Pain (Pain Scale 4-6) 12/20/17 15:15 12/27/17 15:14 Ondansetron HCl (Zofran) 4 mg Q6H PRN IVP Nausea & Vomiting 12/20/17 15:15 01/19/18 15:14 Phenazopyridine HCl (Pyridium) 100 mg DAILY PRN ORAL dysuria 12/20/17 15:15 01/19/18 15:14 Polyethylene Glycol (Miralax) 17 gm DAILYPRN PRN ORAL Constipation 12/20/17 15:15 01/19/18 15:14 Tamsulosin HCl (Flomax) 0.4 mg BEDTIME ORAL 12/21/17 21:00 01/20/18 20:59 Temazepam (Restoril) 15 mg HSPRN PRN ORAL Insomnia 12/20/17 15:15 12/27/17 15:14 Vancomycin HCl (Vanco rx to dose) 1 ea DAILY PRN MISC VANCO PER PHARMACY 12/20/17 16:15 01/19/18 16:14 Vancomycin HCl 500 mg/Dextrose 110 ml @ 110 mls/hr Q12H IVPB 12/20/17 18:00 12/25/17 17:59 12/21/17 06:09 Objective Narrative Gen: NAD, well appearing, lethargic. Per he was eating and sitting up earlier and is now tired. HEENT: NCAT, MMM, EOMI, PERRL, No Oral lesion, no scleral icterus NECK: full range of motion, supple, no meningismus, No LAD, No JVD LUNGS: CTAB, No W/C, No Accessory muscle use CARDS: RRR, S1, S2, No M/R/G, ABD: Soft, NT, ND, No R/G, + BS, No HSM, No Masses, No CVA or suprapubic tenderness : Deferred Ext: C/C/E, Pulses 2+ B/L (DP, Rad): NEURO: Tired and lethargic/Sleepy PSYCH: mood/affect normal SKIN: warm/dry, No rashes, ~ Assessment/Plan Assessment/Plan 87 yo male with PMHx of Prostate CA, Alzheimers, HTN and recurrent UTIs who presented the ED on 12/20/17 with UTI and fever of 101. UTI Pos UA and Fever Hx of recurrent UTI 12/20/17 UCx GNR 12/20/17 BCx NGTD Acute AMS - likely 2/2 to UTI Hx Prostate CA Alzheimers HTN PLAN: - Continue Cefepime #2/ pending cultures - D/C Vancomycin - f/u Urine Cx - Monitor CBC and temps Thank you for this consult. We will continue to follow the patient during this hospitalization. Peter Clement MD Dec 21, 2017 12:36
--- NOTE | 2017-12-21 14:50 | Internal Med Progress Note ---
Subjective Physician Name Edgar Kirk Attending Physician Edgar Kirk MD Current Medications Medications (Trade) Dose Ordered Sig/Margarita Route PRN Reason Start Time Stop Time Status Last Admin Dose Admin Acetaminophen (Tylenol) 650 mg Q4H PRN ORAL fever 12/20/17 15:15 01/19/18 15:14 Acetaminophen (Tylenol) 650 mg Q4H PRN RECTAL Mild Pain (Pain Scale 1-3) 12/20/17 17:15 01/19/18 17:14 12/20/17 17:41 Albuterol/ Ipratropium (Albuterol/ Ipratropium) 3 ml Q4H PRN HHN Shortness of Breath 12/20/17 15:15 12/25/17 15:14 Cefepime HCl 2 gm/ Dextrose 110 ml @ 220 mls/hr Q24H IV 12/20/17 17:00 12/27/17 16:59 12/20/17 17:31 Donepezil HCl (Aricept) 10 mg DAILY ORAL 12/22/17 09:00 01/21/18 08:59 Heparin Sodium (Porcine) (Heparin 5000 units/ml) 5,000 units EVERY 12 HOURS SUBQ 12/20/17 21:00 01/19/18 20:59 12/21/17 09:37 Memantine (Namenda) 10 mg BID ORAL 12/21/17 18:00 01/20/18 17:59 Morphine Sulfate (Morphine Sulfate) 2 mg Q4H PRN IVP Moderate Pain (Pain Scale 4-6) 12/20/17 15:15 12/27/17 15:14 Ondansetron HCl (Zofran) 4 mg Q6H PRN IVP Nausea & Vomiting 12/20/17 15:15 01/19/18 15:14 Phenazopyridine HCl (Pyridium) 100 mg DAILY PRN ORAL dysuria 12/20/17 15:15 01/19/18 15:14 Polyethylene Glycol (Miralax) 17 gm DAILYPRN PRN ORAL Constipation 12/20/17 15:15 01/19/18 15:14 Tamsulosin HCl (Flomax) 0.4 mg BEDTIME ORAL 12/21/17 21:00 01/20/18 20:59 Temazepam (Restoril) 15 mg HSPRN PRN ORAL Insomnia 12/20/17 15:15 12/27/17 15:14 Vancomycin HCl (Vanco rx to dose) 1 ea DAILY PRN MISC VANCO PER PHARMACY 12/20/17 16:15 01/19/18 16:14 Vancomycin HCl 500 mg/Dextrose 110 ml @ 110 mls/hr Q12H IVPB 12/20/17 18:00 12/25/17 17:59 12/21/17 06:09 Allergies: Coded Allergies: No Known Allergies (Unverified , 12/20/17) Subjective awake, responsive with open eyes , not verbal, at bedside, Hgb: 7.9 Objective Last Vital Signs Date Time Temp Pulse Resp B/P (MAP) Pulse Ox O2 Delivery O2 Flow Rate FiO2 12/21/17 12:04 97.8 99 20 120/56 (77) 95 97.8 12/21/17 09:00 Room Air 12/20/17 19:47 21 Laboratory Tests Test 12/21/17 07:20 White Blood Count 7.6 K/UL (4.8-10.8) Red Blood Count 3.74 M/UL (4.70-6.10) L Hemoglobin 7.9 G/DL (14.2-18.0) L Hematocrit 26.6 % (42.0-52.0) L Mean Corpuscular Volume 71 FL (80-99) L Mean Corpuscular Hemoglobin 21.1 PG (27.0-31.0) L Mean Corpuscular Hemoglobin Concent 29.6 G/DL (32.0-36.0) L Red Cell Distribution Width 19.1 % (11.6-14.8) H Platelet Count 154 K/UL (150-450) Mean Platelet Volume 6.5 FL (6.5-10.1) Neutrophils (%) (Auto) % (45.0-75.0) Lymphocytes (%) (Auto) % (20.0-45.0) Monocytes (%) (Auto) % (1.0-10.0) Eosinophils (%) (Auto) % (0.0-3.0) Basophils (%) (Auto) % (0.0-2.0) Differential Total Cells Counted 100 Neutrophils % (Manual) 85 % (45-75) H Lymphocytes % (Manual) 8 % (20-45) L Monocytes % (Manual) 5 % (1-10) Eosinophils % (Manual) 0 % (0-3) Basophils % (Manual) 0 % (0-2) Band Neutrophils 2 % (0-8) Platelet Estimate Adequate Platelet Morphology Normal Hypochromasia 2+ Anisocytosis 2+ Microcytosis 2+ Ovalocytes Occasional Sodium Level 140 MMOL/L (136-145) Potassium Level 3.8 MMOL/L (3.5-5.1) Chloride Level 107 MMOL/L (98-107) Carbon Dioxide Level 25 MMOL/L (21-32) Anion Gap 8 mmol/L (5-15) Blood Urea Nitrogen 23 mg/dL (7-18) H Creatinine 1.0 MG/DL (0.55-1.30) Estimat Glomerular Filtration Rate mL/min (>60) Glucose Level 134 MG/DL (74-106) H Calcium Level 8.5 MG/DL (8.5-10.1) Total Bilirubin 0.7 MG/DL (0.2-1.0) Aspartate Amino Transf (AST/SGOT) 21 U/L (15-37) Alanine Aminotransferase (ALT/SGPT) 21 U/L (12-78) Alkaline Phosphatase 91 U/L (46-116) Total Protein 6.3 G/DL (6.4-8.2) L Albumin 2.4 G/DL (3.4-5.0) L Globulin 3.9 g/dL Albumin/Globulin Ratio 0.6 (1.0-2.7) L Prostate Specific Antigen 316.45 ng/mL (0.13-4.0) H Microbiology Date/Time Source Procedure Growth Status 12/20/17 13:00 Blood Blood Culture - Preliminary Resulted 12/20/17 12:40 Blood Blood Culture - Preliminary Resulted 12/20/17 12:40 Urine,Clean Catch Urine Culture - Preliminary Gram Negative Bacillus 1 Resulted Intake and Output 12/20/17 12/21/17 19:00 07:00 Intake Total 0 ml Output Total 200 ml Balance -200 ml Intake Oral 0 ml Output Urine Total 200 ml # Voids 2 # Bowel Movements 2 1 Objective General: No acute distress, awake and responsive with open eyes HEENT: NCAT, sclera anicteric, PERRL, EOMI. Neck: Supple, no significant jugular venous distention, Lungs: fair inspiratory effort, decrease air entry at bases, no Wheeze or Rales. Heart: Regular rate and rhythm, normal S1/S2, no murmurs Abdomen: soft, nontender, nondistended. Normoactive bowel sounds. 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 Neuro: A&O x 1, Able to move all extremities slowly. Skin: warm, no rashes or lesions Assessment/Plan Assessment/Plan 1. Altered mental status most likely due to toxic metabolic syndrome due to infection 2. Severe anemia 3. GNB Urinary tract infection. 4. Hypertension. 5. Alzheimer dementia. 6. Severe dehydration with pre-renal Azotemia. Plan: discuss with at bedside and son, Dr. Hardwick over the phone @ [phone] Abx: cefepime, DC Vanco IV F/U with labs and cultures Full code transfuse 1 U PRBC Edgar Kirk MD Dec 21, 2017 14:50
[2017-12-21] MEDS ORDERED: Acetaminophen 650 MG SUPP RECTAL PRN (17:15)
[2017-12-21] MEDS ORDERED: Miralax 17gm pkt ORAL PRN (18:00)
[2017-12-21] MEDS ORDERED: Albuterol/Ipratropium 3ml neb HHN PRN (18:00)
[2017-12-21] MEDS ORDERED: Morphine Sulfate 2mg/ml Inj IVP PRN (18:00)
[2017-12-21] MEDS ORDERED: Memantine 10mg tab ORAL SCH (18:00)
[2017-12-21] MEDS: Cefepime HCl 2 GM in D5W 110 ML IV SCH (18:15)
[2017-12-21] MEDS: Memantine 10mg tab ORAL SCH (18:21)
[2017-12-21] MEDS: Tamsulosin 0.4mg cap ORAL SCH (20:48)
[2017-12-21] MEDS ORDERED: Tamsulosin 0.4mg cap ORAL SCH (21:00)
--- NOTE | 2017-12-21 23:18 | General Progress Note ---
Assessment/Plan Problem List: (1) Encephalopathy due to metabolic factor or toxin SNOMED: [id number] Status: stable Assessment/Plan seroquel prn Subjective Neurologic/Psychiatric: Reports: anxiety, depressed, emotional problems Allergies: Coded Allergies: No Known Allergies (Unverified , 12/20/17) Objective Last 24 Hour Vital Signs Date Time Temp Pulse Resp B/P (MAP) Pulse Ox O2 Delivery O2 Flow Rate FiO2 12/21/17 21:18 100.9 12/21/17 21:00 Room Air 12/21/17 20:48 100.0 12/21/17 20:00 100.0 100 18 152/80 (104) 97 100.0 12/21/17 18:07 98.1 101 18 141/67 (91) 98 98.1 12/21/17 16:00 98.3 104 20 146/64 (91) 98 98.3 12/21/17 12:04 97.8 99 20 120/56 (77) 95 97.8 12/21/17 12:00 91 12/21/17 09:00 Room Air 12/21/17 08:00 97.8 99 20 143/67 (92) 98 97.8 12/21/17 08:00 85 12/21/17 04:00 91 12/21/17 04:00 98.2 93 18 108/66 (80) 98 98.2 12/21/17 00:00 97.5 90 18 139/84 (102) 98 97.5 12/21/17 00:00 79 Intake and Output 12/20/17 12/21/17 19:00 07:00 Intake Total 0 ml Output Total 200 ml Balance -200 ml Intake Oral 0 ml Output Urine Total 200 ml # Voids 2 # Bowel Movements 2 1 Laboratory Tests 12/21/17 07:20: White Blood Count 7.6, Red Blood Count 3.74L, Hemoglobin 7.9L, Hematocrit 26.6L , Mean Corpuscular Volume 71L, Mean Corpuscular Hemoglobin 21.1L, Mean Corpuscular Hemoglobin Concent 29.6L, Red Cell Distribution Width 19.1H, Platelet Count 154, Mean Platelet Volume 6.5, Neutrophils (%) (Auto) , Lymphocytes (%) (Auto) , Monocytes (%) (Auto) , Eosinophils (%) (Auto) , Basophils (%) (Auto) , Differential Total Cells Counted 100, Neutrophils % ( Manual) 85H, Lymphocytes % (Manual) 8L, Monocytes % (Manual) 5, Eosinophils % ( Manual) 0, Basophils % (Manual) 0, Band Neutrophils 2, Platelet Estimate Adequate, Platelet Morphology Normal, Hypochromasia 2+, Anisocytosis 2+, Microcytosis 2+, Ovalocytes Occasional, Sodium Level 140, Potassium Level 3.8, Chloride Level 107, Carbon Dioxide Level 25, Anion Gap 8, Blood Urea Nitrogen 23H, Creatinine 1.0, Estimat Glomerular Filtration Rate , Glucose Level 134H, Calcium Level 8.5, Total Bilirubin 0.7, Aspartate Amino Transf (AST/SGOT) 21, Alanine Aminotransferase (ALT/SGPT) 21, Alkaline Phosphatase 91, Total Protein 6.3L, Albumin 2.4L, Globulin 3.9, Albumin/Globulin Ratio 0.6L, Prostate Specific Antigen 316.45H Height (Feet): 5 Height (Inches): 4.00 Weight (Pounds): 148 General Appearance: no apparent distress, confused, agitated Dario Jimenez MD Dec 21, 2017 23:18
[2017-12-22] VITALS: BP 122/57
[2017-12-22 04:00] VITALS: BP 112/58
[2017-12-22 07:00] LABS: BASOPHILS % (AUTO) 0.5 % (0.0-2.0); EOSINOPHILS % (AUTO) 0.5 % (0.0-3.0); HEMOGLOBIN 9.2 G/DL (14.2-18.0); LYMPHOCYTES % (AUTO) 13.6 % (20.0-45.0); MEAN CORPUSCULAR VOLUME 73 FL (80-99); MONOCYTES % (AUTO) 4.9 % (1.0-10.0); NEUTROPHILS % (AUTO) 80.6 % (45.0-75.0); PLATELET COUNT 129 K/UL (150-450); RED BLOOD COUNT 4.11 M/UL (4.70-6.10); RED CELL DISTRIBUTION WIDTH 19.4 % (11.6-14.8); WHITE BLOOD COUNT 4.4 K/UL (4.8-10.8)
[2017-12-22 07:28] LABS: LACTATE DEHYDROGENASE 208 U/L (81-234)
[2017-12-22 08:00] VITALS: BP 123/69
[2017-12-22] MEDS: Memantine 10mg tab ORAL SCH ×2 (08:47→17:01)
[2017-12-22] MEDS: Donepezil 10mg tab ORAL SCH (08:47)
[2017-12-22] MEDS: Heparin 5000 units/ml inj SUBQ SCH ×2 (08:49→21:00)
[2017-12-22 08:58] LABS: % IRON SATURATION 14 % (15-50); IRON 20 ug/dL (50-175); TOTAL IRON BINDING CAPACITY 144 ug/dL (250-450)
[2017-12-22] MEDS ORDERED: Donepezil 10mg tab ORAL SCH (09:00)
[2017-12-22] MEDS: Vancomycin 500mg/D5W 110ml IVPB SCH ×4 (10:37→21:11)
--- NOTE | 2017-12-22 10:53 | Infectious Diseases Prog Note ---
Assessment/Plan Assessment/Plan 87 yo male presented the ED on 12/20/17 with Bactremia GNR 2/2 and GPC 1/2 ( ? contaminant ) Fever complicated UTI Pos UA Hx of recurrent UTI 12/20/17 UCx GNR 12/20/17 BCx NGTD Sepsis Acute AMS - likely 2/2 to UTI Hx Prostate CA Alzheimers HTN PLAN: - Continue Cefepime # 3 /10-14 pending cultures - restart IV Vancomycin d# 2 - f/u Urine . Blood Cx - US of renal ( ro Obst ) - Monitor CBC and temps Subjective Allergies: Coded Allergies: No Known Allergies (Unverified , 12/20/17) Subjective +ve blood culture Objective Vital Signs Last 24 Hour Vital Signs Date Time Temp Pulse Resp B/P (MAP) Pulse Ox O2 Delivery O2 Flow Rate FiO2 12/22/17 08:00 98.2 79 18 123/69 (87) 96 98.2 12/22/17 07:58 Room Air 12/22/17 04:00 97.7 96 18 112/58 (76) 96 97.7 12/22/17 00:00 97.0 90 18 122/57 (78) 95 97.0 12/21/17 21:18 100.9 12/21/17 21:00 Room Air 12/21/17 20:48 100.0 12/21/17 20:00 100.0 100 18 152/80 (104) 97 100.0 12/21/17 19:02 98 18 Room Air 21 12/21/17 18:07 98.1 101 18 141/67 (91) 98 98.1 12/21/17 16:00 98.3 104 20 146/64 (91) 98 98.3 12/21/17 12:04 97.8 99 20 120/56 (77) 95 97.8 12/21/17 12:00 91 Height (Feet): 5 Height (Inches): 4.00 Weight (Pounds): 148 HEENT: anicteric Respiratory/Chest: no respiratory distress Cardiovascular: regularly irregular Abdomen: non distended Microbiology Date/Time Source Procedure Growth Status 12/20/17 13:00 Blood Blood Culture - Preliminary Gram Negative Buddy Gram Positive Cocci Resulted 12/20/17 12:40 Blood Blood Culture - Preliminary Gram Negative Buddy Resulted 12/20/17 13:22 Nasal Nares MRSA Culture - Final NO METHICILLIN RESISTANT STAPH AUREUS... Complete 12/20/17 12:40 Urine,Clean Catch Urine Culture - Final Escherichia Coli Complete 12/20/17 13:22 Rectum VRE Culture - Final NO VANCOMYCIN RESISTANT ENTEROCOCCUS ... Complete 12/20/17 13:22 Rectum - Final NO CARBAPENEM-RESISTANT ENTEROBACTERI... Complete Laboratory Tests Test 12/22/17 05:50 White Blood Count 4.4 K/UL (4.8-10.8) L Red Blood Count 4.11 M/UL (4.70-6.10) L Hemoglobin 9.2 G/DL (14.2-18.0) L Hematocrit 30.0 % (42.0-52.0) L Mean Corpuscular Volume 73 FL (80-99) L Mean Corpuscular Hemoglobin 22.3 PG (27.0-31.0) L Mean Corpuscular Hemoglobin Concent 30.5 G/DL (32.0-36.0) L Red Cell Distribution Width 19.4 % (11.6-14.8) H Platelet Count 129 K/UL (150-450) L Mean Platelet Volume 6.0 FL (6.5-10.1) L Neutrophils (%) (Auto) 80.6 % (45.0-75.0) H Lymphocytes (%) (Auto) 13.6 % (20.0-45.0) L Monocytes (%) (Auto) 4.9 % (1.0-10.0) Eosinophils (%) (Auto) 0.5 % (0.0-3.0) Basophils (%) (Auto) 0.5 % (0.0-2.0) Differential Total Cells Counted 100 Neutrophils % (Manual) 75 % (45-75) Lymphocytes % (Manual) 13 % (20-45) L Monocytes % (Manual) 4 % (1-10) Eosinophils % (Manual) 1 % (0-3) Basophils % (Manual) 0 % (0-2) Band Neutrophils 7 % (0-8) Nucleated Red Blood Cells 1 /100 WBC Platelet Estimate Decreased L Platelet Morphology Normal Hypochromasia 1+ Poikilocytosis 1+ Anisocytosis 2+ Microcytosis 2+ Ovalocytes Occasional Erythrocyte Sedimentation Rate 98 MM/HR (0-20) H Reticulocyte Count Pending Prothrombin Time 10.9 SEC (9.30-11.50) Prothromb Time International Ratio 1.0 (0.9-1.1) Activated Partial Thromboplast Time 33 SEC (23-33) Iron Level 20 ug/dL (50-175) L Total Iron Binding Capacity 144 ug/dL (250-450) L Percent Iron Saturation 14 % (15-50) L Unsaturated Iron Binding 124 ug/dL (112-346) Lactate Dehydrogenase 208 U/L (81-234) Carcinoembryonic Antigen Pending Vitamin B12 Level 1587 PG/ML (193-986) H Folate 6.5 NG/ML (8.6-58.9) L Current Medications Medications (Trade) Dose Ordered Sig/Margarita Route PRN Reason Start Time Stop Time Status Last Admin Dose Admin Acetaminophen (Tylenol) 650 mg Q4H PRN ORAL T>100.5 12/21/17 17:30 01/19/18 17:29 12/21/17 20:48 Acetaminophen (Tylenol) 650 mg Q4H PRN RECTAL Mild Pain (Pain Scale 1-3) 12/21/17 17:15 01/19/18 17:14 Albuterol/ Ipratropium (Albuterol/ Ipratropium) 3 ml Q4H PRN HHN Shortness of Breath 12/21/17 18:00 12/25/17 17:59 Cefepime HCl 2 gm/ Dextrose 110 ml @ 220 mls/hr Q24H IV 12/21/17 17:00 12/28/17 16:59 12/21/17 18:15 Donepezil HCl (Aricept) 10 mg DAILY ORAL 12/22/17 09:00 01/21/18 08:59 12/22/17 08:47 Heparin Sodium (Porcine) (Heparin 5000 units/ml) 5,000 units EVERY 12 HOURS SUBQ 12/21/17 21:00 01/19/18 20:59 12/21/17 20:49 Memantine (Namenda) 10 mg BID ORAL 12/21/17 18:00 01/20/18 17:59 12/22/17 08:47 Morphine Sulfate (Morphine Sulfate) 2 mg Q4H PRN IVP Moderate Pain (Pain Scale 4-6) 12/21/17 18:00 12/27/17 17:59 Ondansetron HCl (Zofran) 4 mg Q6H PRN IVP Nausea & Vomiting 12/21/17 18:00 01/19/18 17:59 Phenazopyridine HCl (Pyridium) 100 mg DAILYPRN PRN ORAL dysuria 12/21/17 18:00 01/20/18 17:59 Polyethylene Glycol (Miralax) 17 gm DAILYPRN PRN ORAL Constipation 12/21/17 18:00 01/20/18 17:59 Tamsulosin HCl (Flomax) 0.4 mg BEDTIME ORAL 12/21/17 21:00 01/20/18 20:59 12/21/17 20:48 Temazepam (Restoril) 15 mg HSPRN PRN ORAL Insomnia 12/21/17 21:00 12/28/17 20:59 Vancomycin HCl (Vanco rx to dose) 1 ea DAILY PRN MISC Per rx protocol 12/22/17 07:15 01/21/18 07:14 Vancomycin HCl 500 mg/Dextrose 110 ml @ 110 mls/hr Q12H IVPB 12/22/17 10:00 12/27/17 09:59 12/22/17 10:37 Romeo Fournier MD Dec 22, 2017 10:53
[2017-12-22 12:00] VITALS: BP 119/58
--- NOTE | 2017-12-22 12:30 | Pulmonology Progress Note ---
Assessment/Plan Problems: (1) COPD (chronic obstructive pulmonary disease) (2) Sepsis (3) Prostate cancer (4) Pyelonephritis (5) Dementia (6) Chronic anemia Assessment/Plan improving received PrBc yesterday PSA noted, pt has known prostate cancer symptomatic treatment check cultures f/u renal function respiratory treatment dvt prophylaxis Subjective ROS Limited/Unobtainable: No Constitutional: Reports: no symptoms HEENT: Repors: no symptoms Allergies: Coded Allergies: No Known Allergies (Unverified , 12/20/17) Objective Last 24 Hour Vital Signs Date Time Temp Pulse Resp B/P (MAP) Pulse Ox O2 Delivery O2 Flow Rate FiO2 12/22/17 12:00 97.6 81 18 119/58 (78) 98 97.6 12/22/17 08:00 98.2 79 18 123/69 (87) 96 98.2 12/22/17 07:58 Room Air 12/22/17 04:00 97.7 96 18 112/58 (76) 96 97.7 12/22/17 00:00 97.0 90 18 122/57 (78) 95 97.0 12/21/17 21:18 100.9 12/21/17 21:00 Room Air 12/21/17 20:48 100.0 12/21/17 20:00 100.0 100 18 152/80 (104) 97 100.0 12/21/17 19:02 98 18 Room Air 21 12/21/17 18:07 98.1 101 18 141/67 (91) 98 98.1 12/21/17 16:00 98.3 104 20 146/64 (91) 98 98.3 Intake and Output 12/21/17 12/22/17 19:00 07:00 Intake Total 1100 ml Balance 1100 ml Intake Oral 990 ml IV Total 110 ml # Voids 2 4 # Bowel Movements 1 General Appearance: cachetic HEENT: normocephalic, atraumatic Respiratory/Chest: chest wall non-tender, lungs clear Cardiovascular: normal peripheral pulses, normal rate Abdomen: normal bowel sounds, soft, non tender Genitourinary: normal external genitalia Extremities: no clubbing Skin: no rash Microbiology Date/Time Source Procedure Growth Status 12/20/17 13:00 Blood Blood Culture - Preliminary Gram Negative Buddy Gram Positive Cocci Resulted 12/20/17 12:40 Blood Blood Culture - Preliminary Gram Negative Buddy Resulted 12/20/17 13:22 Nasal Nares MRSA Culture - Final NO METHICILLIN RESISTANT STAPH AUREUS... Complete 12/20/17 12:40 Urine,Clean Catch Urine Culture - Final Escherichia Coli Complete 12/20/17 13:22 Rectum VRE Culture - Final NO VANCOMYCIN RESISTANT ENTEROCOCCUS ... Complete 12/20/17 13:22 Rectum - Final NO CARBAPENEM-RESISTANT ENTEROBACTERI... Complete Laboratory Tests 12/22/17 05:50: White Blood Count 4.4L, Red Blood Count 4.11L, Hemoglobin 9.2L, Hematocrit 30.0L , Mean Corpuscular Volume 73L, Mean Corpuscular Hemoglobin 22.3L, Mean Corpuscular Hemoglobin Concent 30.5L, Red Cell Distribution Width 19.4H, Platelet Count 129L, Mean Platelet Volume 6.0L, Neutrophils (%) (Auto) 80.6H, Lymphocytes (%) (Auto) 13.6L, Monocytes (%) (Auto) 4.9, Eosinophils (%) (Auto) 0.5, Basophils (%) (Auto) 0.5, Differential Total Cells Counted 100, Neutrophils % (Manual) 75, Lymphocytes % (Manual) 13L, Monocytes % (Manual) 4, Eosinophils % (Manual) 1, Basophils % (Manual) 0, Band Neutrophils 7, Nucleated Red Blood Cells 1, Platelet Estimate DecreasedL, Platelet Morphology Normal, Hypochromasia 1+, Poikilocytosis 1+, Anisocytosis 2+, Microcytosis 2+, Ovalocytes Occasional, Erythrocyte Sedimentation Rate 98H, Reticulocyte Count 1.2, Prothrombin Time 10.9, Prothromb Time International Ratio 1.0, Activated Partial Thromboplast Time 33, Iron Level 20L, Total Iron Binding Capacity 144L, Percent Iron Saturation 14L, Unsaturated Iron Binding 124, Lactate Dehydrogenase 208, Carcinoembryonic Antigen [Pending], Vitamin B12 Level 1587H, Folate 6.5L Current Medications Medications (Trade) Dose Ordered Sig/Margarita Route PRN Reason Start Time Stop Time Status Last Admin Dose Admin Acetaminophen (Tylenol) 650 mg Q4H PRN ORAL T>100.5 12/21/17 17:30 01/19/18 17:29 12/21/17 20:48 Acetaminophen (Tylenol) 650 mg Q4H PRN RECTAL Mild Pain (Pain Scale 1-3) 12/21/17 17:15 01/19/18 17:14 Albuterol/ Ipratropium (Albuterol/ Ipratropium) 3 ml Q4H PRN HHN Shortness of Breath 12/21/17 18:00 12/25/17 17:59 Cefepime HCl 2 gm/ Dextrose 110 ml @ 220 mls/hr Q24H IV 12/21/17 17:00 12/28/17 16:59 12/21/17 18:15 Donepezil HCl (Aricept) 10 mg DAILY ORAL 12/22/17 09:00 01/21/18 08:59 12/22/17 08:47 Heparin Sodium (Porcine) (Heparin 5000 units/ml) 5,000 units EVERY 12 HOURS SUBQ 12/21/17 21:00 01/19/18 20:59 12/21/17 20:49 Memantine (Namenda) 10 mg BID ORAL 12/21/17 18:00 01/20/18 17:59 12/22/17 08:47 Morphine Sulfate (Morphine Sulfate) 2 mg Q4H PRN IVP Moderate Pain (Pain Scale 4-6) 12/21/17 18:00 12/27/17 17:59 Ondansetron HCl (Zofran) 4 mg Q6H PRN IVP Nausea & Vomiting 12/21/17 18:00 01/19/18 17:59 Phenazopyridine HCl (Pyridium) 100 mg DAILYPRN PRN ORAL dysuria 12/21/17 18:00 01/20/18 17:59 Polyethylene Glycol (Miralax) 17 gm DAILYPRN PRN ORAL Constipation 12/21/17 18:00 01/20/18 17:59 Tamsulosin HCl (Flomax) 0.4 mg BEDTIME ORAL 12/21/17 21:00 01/20/18 20:59 12/21/17 20:48 Temazepam (Restoril) 15 mg HSPRN PRN ORAL Insomnia 12/21/17 21:00 12/28/17 20:59 Vancomycin HCl (Vanco rx to dose) 1 ea DAILY PRN MISC Per rx protocol 12/22/17 07:15 01/21/18 07:14 Vancomycin HCl 500 mg/Dextrose 110 ml @ 110 mls/hr Q12H IVPB 12/22/17 10:00 12/27/17 09:59 12/22/17 10:37 Marisol Purdy MD Dec 22, 2017 12:30
[2017-12-22 16:00] VITALS: BP 139/67
[2017-12-22] MEDS: Cefepime HCl 2 GM in D5W 110 ML IV SCH (16:27)
[2017-12-22] MEDS ORDERED: NS 275ml ONE ×2 (16:29)
[2017-12-22] MEDS ORDERED: Tubing IV Secondary IV ONE (16:29)
[2017-12-22] MEDS ORDERED: Tubing IV Blood Pump IV ONE (16:29)
--- NOTE | 2017-12-22 16:48 | Internal Med Progress Note ---
Subjective Date of Service: Dec 22, 2017 Physician Name PadgettKishan Attending Physician Edgar Kirk MD Current Medications Medications (Trade) Dose Ordered Sig/Margarita Route PRN Reason Start Time Stop Time Status Last Admin Dose Admin Acetaminophen (Tylenol) 650 mg Q4H PRN ORAL T>100.5 12/21/17 17:30 01/19/18 17:29 12/21/17 20:48 Acetaminophen (Tylenol) 650 mg Q4H PRN RECTAL Mild Pain (Pain Scale 1-3) 12/21/17 17:15 01/19/18 17:14 Albuterol/ Ipratropium (Albuterol/ Ipratropium) 3 ml Q4H PRN HHN Shortness of Breath 12/21/17 18:00 12/25/17 17:59 Cefepime HCl 2 gm/ Dextrose 110 ml @ 220 mls/hr Q24H IV 12/21/17 17:00 12/28/17 16:59 12/22/17 16:27 Donepezil HCl (Aricept) 10 mg DAILY ORAL 12/22/17 09:00 01/21/18 08:59 12/22/17 08:47 Heparin Sodium (Porcine) (Heparin 5000 units/ml) 5,000 units EVERY 12 HOURS SUBQ 12/21/17 21:00 01/19/18 20:59 12/21/17 20:49 Memantine (Namenda) 10 mg BID ORAL 12/21/17 18:00 01/20/18 17:59 12/22/17 08:47 Morphine Sulfate (Morphine Sulfate) 2 mg Q4H PRN IVP Moderate Pain (Pain Scale 4-6) 12/21/17 18:00 12/27/17 17:59 Ondansetron HCl (Zofran) 4 mg Q6H PRN IVP Nausea & Vomiting 12/21/17 18:00 01/19/18 17:59 Phenazopyridine HCl (Pyridium) 100 mg DAILYPRN PRN ORAL dysuria 12/21/17 18:00 01/20/18 17:59 Polyethylene Glycol (Miralax) 17 gm DAILYPRN PRN ORAL Constipation 12/21/17 18:00 01/20/18 17:59 Tamsulosin HCl (Flomax) 0.4 mg BEDTIME ORAL 12/21/17 21:00 01/20/18 20:59 12/21/17 20:48 Temazepam (Restoril) 15 mg HSPRN PRN ORAL Insomnia 12/21/17 21:00 12/28/17 20:59 Vancomycin HCl (Vanco rx to dose) 1 ea DAILY PRN MISC Per rx protocol 12/22/17 07:15 01/21/18 07:14 Vancomycin HCl 500 mg/Dextrose 110 ml @ 110 mls/hr Q12H IVPB 12/22/17 10:00 12/27/17 09:59 12/22/17 10:37 Allergies: Coded Allergies: No Known Allergies (Unverified , 12/20/17) ROS Limited/Unobtainable: Yes Subjective 87 YO M admitted with altered mental status. Now UTI and sepsis. Cover for Int Med-Dr Kirk Objective Last Vital Signs Date Time Temp Pulse Resp B/P (MAP) Pulse Ox O2 Delivery O2 Flow Rate FiO2 12/22/17 16:00 98.4 83 18 139/67 (91) 100 98.4 12/22/17 07:58 Room Air 12/21/17 19:02 21 General Appearance: WD/WN, no apparent distress, alert EENT: PERRL/EOMI, normal ENT inspection Neck: non-tender, normal alignment, supple, normal inspection Cardiovascular: normal peripheral pulses, normal rate, regular rhythm, no gallop/murmur, no JVD Respiratory/Chest: chest wall non-tender, lungs clear, normal breath sounds, no respiratory distress, no accessory muscle use Abdomen: normal bowel sounds, non tender, soft, no organomegaly, no mass Extremities: normal range of motion, non-tender Neurologic: rfp writer II-XII grossly normal, no motor/sensory deficits Skin: normal pigmentation Laboratory Tests Test 12/22/17 05:50 White Blood Count 4.4 K/UL (4.8-10.8) L Red Blood Count 4.11 M/UL (4.70-6.10) L Hemoglobin 9.2 G/DL (14.2-18.0) L Hematocrit 30.0 % (42.0-52.0) L Mean Corpuscular Volume 73 FL (80-99) L Mean Corpuscular Hemoglobin 22.3 PG (27.0-31.0) L Mean Corpuscular Hemoglobin Concent 30.5 G/DL (32.0-36.0) L Red Cell Distribution Width 19.4 % (11.6-14.8) H Platelet Count 129 K/UL (150-450) L Mean Platelet Volume 6.0 FL (6.5-10.1) L Neutrophils (%) (Auto) 80.6 % (45.0-75.0) H Lymphocytes (%) (Auto) 13.6 % (20.0-45.0) L Monocytes (%) (Auto) 4.9 % (1.0-10.0) Eosinophils (%) (Auto) 0.5 % (0.0-3.0) Basophils (%) (Auto) 0.5 % (0.0-2.0) Differential Total Cells Counted 100 Neutrophils % (Manual) 75 % (45-75) Lymphocytes % (Manual) 13 % (20-45) L Monocytes % (Manual) 4 % (1-10) Eosinophils % (Manual) 1 % (0-3) Basophils % (Manual) 0 % (0-2) Band Neutrophils 7 % (0-8) Nucleated Red Blood Cells 1 /100 WBC Platelet Estimate Decreased L Platelet Morphology Normal Hypochromasia 1+ Poikilocytosis 1+ Anisocytosis 2+ Microcytosis 2+ Ovalocytes Occasional Erythrocyte Sedimentation Rate 98 MM/HR (0-20) H Reticulocyte Count 1.2 % (0.0-2.0) Prothrombin Time 10.9 SEC (9.30-11.50) Prothromb Time International Ratio 1.0 (0.9-1.1) Activated Partial Thromboplast Time 33 SEC (23-33) Iron Level 20 ug/dL (50-175) L Total Iron Binding Capacity 144 ug/dL (250-450) L Percent Iron Saturation 14 % (15-50) L Unsaturated Iron Binding 124 ug/dL (112-346) Lactate Dehydrogenase 208 U/L (81-234) Carcinoembryonic Antigen Pending Vitamin B12 Level 1587 PG/ML (193-986) H Folate 6.5 NG/ML (8.6-58.9) L Microbiology Date/Time Source Procedure Growth Status 12/20/17 13:00 Blood Blood Culture - Preliminary Gram Negative Buddy Gram Positive Cocci Resulted 12/20/17 12:40 Blood Blood Culture - Preliminary Gram Negative Buddy Resulted 12/20/17 13:22 Nasal Nares MRSA Culture - Final NO METHICILLIN RESISTANT STAPH AUREUS... Complete 12/20/17 12:40 Urine,Clean Catch Urine Culture - Final Escherichia Coli Complete 12/20/17 13:22 Rectum VRE Culture - Final NO VANCOMYCIN RESISTANT ENTEROCOCCUS ... Complete 12/20/17 13:22 Rectum - Final NO CARBAPENEM-RESISTANT ENTEROBACTERI... Complete Intake and Output 12/21/17 12/22/17 19:00 07:00 Intake Total 1100 ml Balance 1100 ml Intake Oral 990 ml IV Total 110 ml # Voids 2 4 # Bowel Movements 1 Assessment/Plan Problem List: (1) Alzheimer disease (2) HTN (hypertension) (3) Altered mental status (4) UTI (urinary tract infection) Assessment & Plan: E. Coli. Continue cefepime per ID (5) Sepsis Assessment & Plan: Gram neg buddy and gram pos cocci Kishan Padgett MD Dec 22, 2017 16:48
--- NOTE | 2017-12-22 17:37 | Diagnostic Imaging Report ---
EXAM: US Retroperitoneal Complete, Renal CLINICAL HISTORY: ABN LABS TECHNIQUE: Real-time ultrasound of the retroperitoneum (complete) with image documentation. COMPARISON: No relevant prior studies available. FINDINGS: Right kidney: Right kidney 11.9 cm. Right renal cysts up to approximately 4 cm. No stones. No hydronephrosis. Left kidney: [id number] left hydronephrosis. Left kidney 11.8 cm. No stones. Bladder: Distended fluid-filled prevoid bladder approximately 498 mL. Bilateral ureteral jets present. IMPRESSION: [id number] left hydronephrosis.
[2017-12-22 20:00] VITALS: BP 135/66
[2017-12-22] MEDS: Tamsulosin 0.4mg cap ORAL SCH (21:11)
[2017-12-23] VITALS (8 sets, daily range): BP systolic 130–168; BP diastolic 65–79
[2017-12-23 07:08] LABS: BASOPHILS % (AUTO) 0.5 % (0.0-2.0); EOSINOPHILS % (AUTO) 0.8 % (0.0-3.0); HEMATOCRIT 27.3 % (42.0-52.0); HEMOGLOBIN 8.3 G/DL (14.2-18.0); LYMPHOCYTES % (AUTO) 25.4 % (20.0-45.0); MEAN CORPUSCULAR VOLUME 73 FL (80-99); MONOCYTES % (AUTO) 6.6 % (1.0-10.0); NEUTROPHILS % (AUTO) 66.7 % (45.0-75.0); PLATELET COUNT 142 K/UL (150-450); RED BLOOD COUNT 3.75 M/UL (4.70-6.10); RED CELL DISTRIBUTION WIDTH 19.5 % (11.6-14.8); WHITE BLOOD COUNT 3.5 K/UL (4.8-10.8)
[2017-12-23 07:20] LABS: ALANINE AMINOTRANSFERASE 35 U/L (12-78); ALBUMIN 2.2 G/DL (3.4-5.0); ALBUMIN/GLOBULIN RATIO 0.6 (1.0-2.7); ALKALINE PHOSPHATASE 78 U/L (46-116); ANION GAP 8 mmol/L (5-15); ASPARTATE AMINO TRANSFERASE 26 U/L (15-37); BILIRUBIN,TOTAL 0.4 MG/DL (0.2-1.0); BLOOD UREA NITROGEN 21 mg/dL (7-18); CALCIUM 8.5 MG/DL (8.5-10.1); CARBON DIOXIDE 24 MMOL/L (21-32); CHLORIDE 109 MMOL/L (98-107); CREATININE 0.9 MG/DL (0.55-1.30); PHOSPHORUS 1.8 MG/DL (2.5-4.9); POTASSIUM 3.7 MMOL/L (3.5-5.1); SODIUM 141 MMOL/L (136-145)
[2017-12-23] MEDS: Heparin 5000 units/ml inj SUBQ SCH ×2 (09:00→20:33)
[2017-12-23] MEDS: Donepezil 10mg tab ORAL SCH (09:13)
[2017-12-23] MEDS: Vancomycin 500mg/D5W 110ml IVPB SCH ×4 (09:13→22:00)
[2017-12-23] MEDS: Memantine 10mg tab ORAL SCH ×2 (09:13→17:44)
[2017-12-23] MEDS ORDERED: Tubing IV Secondary IV ONE (11:33)
--- NOTE | 2017-12-23 13:21 | Internal Med Progress Note ---
Subjective Date of Service: Dec 23, 2017 Physician Name PadgettKishan Attending Physician Edgar Kirk MD Current Medications Medications (Trade) Dose Ordered Sig/Margarita Route PRN Reason Start Time Stop Time Status Last Admin Dose Admin Acetaminophen (Tylenol) 650 mg Q4H PRN ORAL T>100.5 12/21/17 17:30 01/19/18 17:29 12/21/17 20:48 Acetaminophen (Tylenol) 650 mg Q4H PRN RECTAL Mild Pain (Pain Scale 1-3) 12/21/17 17:15 01/19/18 17:14 Albuterol/ Ipratropium (Albuterol/ Ipratropium) 3 ml Q4H PRN HHN Shortness of Breath 12/21/17 18:00 12/25/17 17:59 Cefepime HCl 2 gm/ Dextrose 110 ml @ 220 mls/hr Q24H IV 12/21/17 17:00 12/28/17 16:59 12/22/17 16:27 Donepezil HCl (Aricept) 10 mg DAILY ORAL 12/22/17 09:00 01/21/18 08:59 12/23/17 09:13 Heparin Sodium (Porcine) (Heparin 5000 units/ml) 5,000 units EVERY 12 HOURS SUBQ 12/21/17 21:00 01/19/18 20:59 12/21/17 20:49 Memantine (Namenda) 10 mg BID ORAL 12/21/17 18:00 01/20/18 17:59 12/23/17 09:13 Morphine Sulfate (Morphine Sulfate) 2 mg Q4H PRN IVP Moderate Pain (Pain Scale 4-6) 12/21/17 18:00 12/27/17 17:59 Ondansetron HCl (Zofran) 4 mg Q6H PRN IVP Nausea & Vomiting 12/21/17 18:00 01/19/18 17:59 Phenazopyridine HCl (Pyridium) 100 mg DAILYPRN PRN ORAL dysuria 12/21/17 18:00 01/20/18 17:59 Polyethylene Glycol (Miralax) 17 gm DAILYPRN PRN ORAL Constipation 12/21/17 18:00 01/20/18 17:59 Tamsulosin HCl (Flomax) 0.4 mg BEDTIME ORAL 12/21/17 21:00 01/20/18 20:59 12/22/17 21:11 Temazepam (Restoril) 15 mg HSPRN PRN ORAL Insomnia 12/21/17 21:00 12/28/17 20:59 Vancomycin HCl (Vanco rx to dose) 1 ea DAILY PRN MISC Per rx protocol 12/22/17 07:15 01/21/18 07:14 Vancomycin HCl 500 mg/Dextrose 110 ml @ 110 mls/hr Q12H IVPB 12/22/17 10:00 12/27/17 09:59 12/23/17 09:13 Allergies: Coded Allergies: No Known Allergies (Unverified , 12/20/17) ROS Limited/Unobtainable: Yes Subjective 87 YO M admitted with altered mental status. Now UTI and sepsis. Cover for Int Med-Dr Kirk Objective Last Vital Signs Date Time Temp Pulse Resp B/P (MAP) Pulse Ox O2 Delivery O2 Flow Rate FiO2 12/23/17 12:00 98.0 78 18 137/66 (89) 98 98.0 12/23/17 10:00 Room Air 21 Laboratory Tests Test 12/23/17 06:15 White Blood Count 3.5 K/UL (4.8-10.8) L Red Blood Count 3.75 M/UL (4.70-6.10) L Hemoglobin 8.3 G/DL (14.2-18.0) L Hematocrit 27.3 % (42.0-52.0) L Mean Corpuscular Volume 73 FL (80-99) L Mean Corpuscular Hemoglobin 22.0 PG (27.0-31.0) L Mean Corpuscular Hemoglobin Concent 30.3 G/DL (32.0-36.0) L Red Cell Distribution Width 19.5 % (11.6-14.8) H Platelet Count 142 K/UL (150-450) L Mean Platelet Volume 7.5 FL (6.5-10.1) Neutrophils (%) (Auto) 66.7 % (45.0-75.0) Lymphocytes (%) (Auto) 25.4 % (20.0-45.0) Monocytes (%) (Auto) 6.6 % (1.0-10.0) Eosinophils (%) (Auto) 0.8 % (0.0-3.0) Basophils (%) (Auto) 0.5 % (0.0-2.0) Sodium Level 141 MMOL/L (136-145) Potassium Level 3.7 MMOL/L (3.5-5.1) Chloride Level 109 MMOL/L (98-107) H Carbon Dioxide Level 24 MMOL/L (21-32) Anion Gap 8 mmol/L (5-15) Blood Urea Nitrogen 21 mg/dL (7-18) H Creatinine 0.9 MG/DL (0.55-1.30) Estimat Glomerular Filtration Rate mL/min (>60) Glucose Level 104 MG/DL (74-106) Calcium Level 8.5 MG/DL (8.5-10.1) Phosphorus Level 1.8 MG/DL (2.5-4.9) L Magnesium Level 2.1 MG/DL (1.8-2.4) Total Bilirubin 0.4 MG/DL (0.2-1.0) Aspartate Amino Transf (AST/SGOT) 26 U/L (15-37) Alanine Aminotransferase (ALT/SGPT) 35 U/L (12-78) Alkaline Phosphatase 78 U/L (46-116) Total Protein 5.9 G/DL (6.4-8.2) L Albumin 2.2 G/DL (3.4-5.0) L Globulin 3.7 g/dL Albumin/Globulin Ratio 0.6 (1.0-2.7) L Microbiology Date/Time Source Procedure Growth Status 12/20/17 13:22 Nasal Nares MRSA Culture - Final NO METHICILLIN RESISTANT STAPH AUREUS... Complete 12/20/17 13:22 Rectum VRE Culture - Final NO VANCOMYCIN RESISTANT ENTEROCOCCUS ... Complete 12/20/17 13:22 Rectum - Final NO CARBAPENEM-RESISTANT ENTEROBACTERI... Complete Intake and Output 12/22/17 12/23/17 19:00 07:00 Intake Total 700 ml 470 ml Balance 700 ml 470 ml Intake Oral 480 ml 360 ml IV Total 220 ml 110 ml # Voids 1 3 # Bowel Movements 1 Objective General Appearance: WD/WN, no apparent distress, alert EENT: PERRL/EOMI, normal ENT inspection Neck: non-tender, normal alignment, supple, normal inspection Cardiovascular: normal peripheral pulses, normal rate, regular rhythm, no gallop/murmur, no JVD Respiratory/Chest: chest wall non-tender, lungs clear, normal breath sounds, no respiratory distress, no accessory muscle use Abdomen: normal bowel sounds, non tender, soft, no organomegaly, no mass Extremities: normal range of motion, non-tender Neurologic: steel finisher II-XII grossly normal, no motor/sensory deficits Skin: normal pigmentation Assessment/Plan Problem List: (1) Alzheimer disease (2) HTN (hypertension) (3) Altered mental status (4) UTI (urinary tract infection) Assessment & Plan: E. Coli. Continue cefepime per ID (5) Sepsis Assessment & Plan: E. Coli and coag neg staph. Cont cefepime and vanco per ID Status: not improved Kishan Padgett MD Dec 23, 2017 13:21
--- NOTE | 2017-12-23 13:51 | Pulmonology Progress Note ---
Assessment/Plan Problems: (1) COPD (chronic obstructive pulmonary disease) (2) Sepsis (3) Prostate cancer (4) Pyelonephritis (5) Dementia (6) Chronic anemia Assessment/Plan all reviewed improving received PrBc PSA noted, pt has known prostate cancer symptomatic treatment check cultures f/u renal function respiratory treatment dvt prophylaxis Subjective ROS Limited/Unobtainable: No Interval Events: doing better Allergies: Coded Allergies: No Known Allergies (Unverified , 12/20/17) Objective Last 24 Hour Vital Signs Date Time Temp Pulse Resp B/P (MAP) Pulse Ox O2 Delivery O2 Flow Rate FiO2 12/23/17 12:00 98.0 78 18 137/66 (89) 98 98.0 12/23/17 10:00 86 18 Room Air 21 12/23/17 08:30 Room Air 12/23/17 08:00 97.7 87 18 154/65 (94) 97 97.7 12/23/17 04:00 98.9 80 18 130/65 (86) 98 98.9 12/23/17 00:00 97.3 90 18 147/70 (95) 98 97.3 12/22/17 21:00 Room Air 12/22/17 20:31 84 18 Room Air 21 12/22/17 20:00 98.4 81 18 135/66 (89) 97 98.4 12/22/17 16:00 98.4 83 18 139/67 (91) 100 98.4 Intake and Output 12/22/17 12/23/17 19:00 07:00 Intake Total 700 ml 470 ml Balance 700 ml 470 ml Intake Oral 480 ml 360 ml IV Total 220 ml 110 ml # Voids 1 3 # Bowel Movements 1 General Appearance: WD/WN HEENT: normocephalic Respiratory/Chest: chest wall non-tender, lungs clear Cardiovascular: normal peripheral pulses, regular rhythm Abdomen: soft, non tender, non distended Extremities: no cyanosis Skin: no lesions Laboratory Tests 12/23/17 06:15: White Blood Count 3.5L, Red Blood Count 3.75L, Hemoglobin 8.3L, Hematocrit 27.3L , Mean Corpuscular Volume 73L, Mean Corpuscular Hemoglobin 22.0L, Mean Corpuscular Hemoglobin Concent 30.3L, Red Cell Distribution Width 19.5H, Platelet Count 142L, Mean Platelet Volume 7.5, Neutrophils (%) (Auto) 66.7, Lymphocytes (%) (Auto) 25.4, Monocytes (%) (Auto) 6.6, Eosinophils (%) (Auto) 0.8, Basophils (%) (Auto) 0.5, Sodium Level 141, Potassium Level 3.7, Chloride Level 109H, Carbon Dioxide Level 24, Anion Gap 8, Blood Urea Nitrogen 21H, Creatinine 0.9, Estimat Glomerular Filtration Rate , Glucose Level 104, Calcium Level 8.5, Phosphorus Level 1.8L, Magnesium Level 2.1, Total Bilirubin 0.4, Aspartate Amino Transf (AST/SGOT) 26, Alanine Aminotransferase (ALT/SGPT) 35, Alkaline Phosphatase 78, Total Protein 5.9L, Albumin 2.2L, Globulin 3.7, Albumin /Globulin Ratio 0.6L Current Medications Medications (Trade) Dose Ordered Sig/Margarita Route PRN Reason Start Time Stop Time Status Last Admin Dose Admin Acetaminophen (Tylenol) 650 mg Q4H PRN ORAL T>100.5 12/21/17 17:30 01/19/18 17:29 12/21/17 20:48 Acetaminophen (Tylenol) 650 mg Q4H PRN RECTAL Mild Pain (Pain Scale 1-3) 12/21/17 17:15 01/19/18 17:14 Albuterol/ Ipratropium (Albuterol/ Ipratropium) 3 ml Q4H PRN HHN Shortness of Breath 12/21/17 18:00 12/25/17 17:59 Cefepime HCl 2 gm/ Dextrose 110 ml @ 220 mls/hr Q24H IV 12/21/17 17:00 12/28/17 16:59 12/22/17 16:27 Donepezil HCl (Aricept) 10 mg DAILY ORAL 12/22/17 09:00 01/21/18 08:59 12/23/17 09:13 Heparin Sodium (Porcine) (Heparin 5000 units/ml) 5,000 units EVERY 12 HOURS SUBQ 12/21/17 21:00 01/19/18 20:59 12/21/17 20:49 Memantine (Namenda) 10 mg BID ORAL 12/21/17 18:00 01/20/18 17:59 12/23/17 09:13 Morphine Sulfate (Morphine Sulfate) 2 mg Q4H PRN IVP Moderate Pain (Pain Scale 4-6) 12/21/17 18:00 12/27/17 17:59 Ondansetron HCl (Zofran) 4 mg Q6H PRN IVP Nausea & Vomiting 12/21/17 18:00 01/19/18 17:59 Phenazopyridine HCl (Pyridium) 100 mg DAILYPRN PRN ORAL dysuria 12/21/17 18:00 01/20/18 17:59 Polyethylene Glycol (Miralax) 17 gm DAILYPRN PRN ORAL Constipation 12/21/17 18:00 01/20/18 17:59 Tamsulosin HCl (Flomax) 0.4 mg BEDTIME ORAL 12/21/17 21:00 01/20/18 20:59 12/22/17 21:11 Temazepam (Restoril) 15 mg HSPRN PRN ORAL Insomnia 12/21/17 21:00 12/28/17 20:59 Vancomycin HCl (Vanco rx to dose) 1 ea DAILY PRN MISC Per rx protocol 12/22/17 07:15 01/21/18 07:14 Vancomycin HCl 500 mg/Dextrose 110 ml @ 110 mls/hr Q12H IVPB 12/22/17 10:00 12/27/17 09:59 12/23/17 09:13 Marisol Purdy MD Dec 23, 2017 13:51
--- NOTE | 2017-12-23 16:13 | Cardiology Report ---
APPROVED REPORT EKG Measurement Heart [id number] Sinus tachycardia Low voltage QRS Septal infarct, age undetermined Abnormal ECG
[2017-12-23] MEDS: Cefepime HCl 2 GM in D5W 110 ML IV SCH (17:44)
[2017-12-23] MEDS: Tamsulosin 0.4mg cap ORAL SCH (20:39)
[2017-12-23] MEDS: Vancomycin 750mg/NS 250ml IVPB SCH (23:10)
[2017-12-24 00:39] VITALS: BP 143/79
[2017-12-24 04:40] VITALS: BP 150/74
[2017-12-24 07:44] LABS: BASOPHILS % (AUTO) 0.7 % (0.0-2.0); EOSINOPHILS % (AUTO) 2.1 % (0.0-3.0); HEMATOCRIT 29.4 % (42.0-52.0); HEMOGLOBIN 8.9 G/DL (14.2-18.0); LYMPHOCYTES % (AUTO) 21.4 % (20.0-45.0); MEAN CORPUSCULAR VOLUME 74 FL (80-99); MONOCYTES % (AUTO) 7.7 % (1.0-10.0); NEUTROPHILS % (AUTO) 68.1 % (45.0-75.0); PLATELET COUNT 146 K/UL (150-450); RED BLOOD COUNT 3.98 M/UL (4.70-6.10); WHITE BLOOD COUNT 3.8 K/UL (4.8-10.8)
[2017-12-24 08:00] VITALS: BP 136/69
[2017-12-24 08:20] LABS: PHOSPHORUS 2.1 MG/DL (2.5-4.9)
--- NOTE | 2017-12-24 08:39 | Infectious Diseases Prog Note ---
Assessment/Plan Assessment/Plan 87 yo male presented the ED on 12/20/17 with Bactremia E.coli 2/2 and CoNS1/2 ( Likely Contaminant) Fever - Resolved Complicated UTI Pos UA Hx of recurrent UTI 12/22/17 US Kid - Akbr-is-yxiltotm left hydronephrosis 12/22/17 BCx - NGTD 12/20/17 UCx E. coli 12/20/17 BCx NGTD Sepsis - Resolved Acute AMS - Resolved - likely 2/2 to UTI Hx Prostate CA Alzheimers HTN PLAN: - Start Ceftriaxone - - Could D/C on PO Abx for urosepsis once stable for D/C - Bactrim DS BID or Levofloxacin 750MG Qday (End Date 01/02/18) - D/C Vancomycin #4 and Cefepime #5 - f/u Blood Cx - US of renal ( ro Obst ) - Monitor CBC and temps Subjective Allergies: Coded Allergies: No Known Allergies (Unverified , 12/20/17) Subjective Patient afebrile No acute complaints Objective Vital Signs Last 24 Hour Vital Signs Date Time Temp Pulse Resp B/P (MAP) Pulse Ox O2 Delivery O2 Flow Rate FiO2 12/24/17 08:00 96.6 75 18 136/69 (91) 95 96.6 12/24/17 08:00 97.4 75 18 136/69 (91) 95 97.4 12/24/17 04:40 78 150/74 (99) 12/24/17 04:14 97.4 62 18 99 97.4 12/24/17 00:39 98.1 82 18 143/79 (100) 97 98.1 12/23/17 21:41 82 20 Room Air 21 12/23/17 21:36 79 152/75 (100) 12/23/17 20:40 85 162/73 (102) 12/23/17 20:30 Room Air 12/23/17 20:07 98.0 90 18 168/79 (108) 98 98.0 12/23/17 16:00 98.6 78 18 141/68 (92) 97 98.6 78 12/23/17 12:00 98.0 78 18 137/66 (89) 98 98.0 12/23/17 10:00 86 18 Room Air 21 12/23/17 08:30 Room Air Height (Feet): 5 Height (Inches): 4.00 Weight (Pounds): 148 Objective Gen: NAD, well appearing HEENT: NCAT, MMM, EOMI LUNGS: CTAB, No W/C, No Accessory muscle use CARDS: RRR, S1, S2, No M/R/G, ABD: Soft, NT, ND, No R/G, + BS, Microbiology Date/Time Source Procedure Growth Status 12/22/17 12:00 Blood Blood Culture - Preliminary NO GROWTH AFTER 24 HOURS Resulted 12/22/17 11:50 Blood Blood Culture - Preliminary NO GROWTH AFTER 24 HOURS Resulted Laboratory Tests Test 12/23/17 21:15 12/23/17 22:48 12/24/17 06:30 Vancomycin Level Trough 9.3 ug/mL (5.0-12.0) Stool Occult Blood Pending White Blood Count 3.8 K/UL (4.8-10.8) L Red Blood Count 3.98 M/UL (4.70-6.10) L Hemoglobin 8.9 G/DL (14.2-18.0) L Hematocrit 29.4 % (42.0-52.0) L Mean Corpuscular Volume 74 FL (80-99) L Mean Corpuscular Hemoglobin 22.3 PG (27.0-31.0) L Mean Corpuscular Hemoglobin Concent 30.1 G/DL (32.0-36.0) L Red Cell Distribution Width 20.0 % (11.6-14.8) H Platelet Count 146 K/UL (150-450) L Mean Platelet Volume 6.5 FL (6.5-10.1) Neutrophils (%) (Auto) 68.1 % (45.0-75.0) Lymphocytes (%) (Auto) 21.4 % (20.0-45.0) Monocytes (%) (Auto) 7.7 % (1.0-10.0) Eosinophils (%) (Auto) 2.1 % (0.0-3.0) Basophils (%) (Auto) 0.7 % (0.0-2.0) Sodium Level Pending Potassium Level Pending Chloride Level Pending Carbon Dioxide Level Pending Blood Urea Nitrogen Pending Creatinine Pending Estimat Glomerular Filtration Rate Pending Glucose Level Pending Calcium Level Pending Phosphorus Level 2.1 MG/DL (2.5-4.9) L Magnesium Level 2.0 MG/DL (1.8-2.4) Total Bilirubin Pending Aspartate Amino Transf (AST/SGOT) Pending Alanine Aminotransferase (ALT/SGPT) Pending Alkaline Phosphatase Pending Total Protein Pending Albumin Pending Globulin Pending Current Medications Medications (Trade) Dose Ordered Sig/Margarita Route PRN Reason Start Time Stop Time Status Last Admin Dose Admin Acetaminophen (Tylenol) 650 mg Q4H PRN ORAL T>100.5 12/21/17 17:30 01/19/18 17:29 12/21/17 20:48 Acetaminophen (Tylenol) 650 mg Q4H PRN RECTAL Mild Pain (Pain Scale 1-3) 12/21/17 17:15 01/19/18 17:14 Albuterol/ Ipratropium (Albuterol/ Ipratropium) 3 ml Q4H PRN HHN Shortness of Breath 12/21/17 18:00 12/25/17 17:59 Cefepime HCl 2 gm/ Dextrose 110 ml @ 220 mls/hr Q24H IV 12/21/17 17:00 12/28/17 16:59 12/23/17 17:44 Donepezil HCl (Aricept) 10 mg DAILY ORAL 12/22/17 09:00 01/21/18 08:59 12/23/17 09:13 Heparin Sodium (Porcine) (Heparin 5000 units/ml) 5,000 units EVERY 12 HOURS SUBQ 12/21/17 21:00 01/19/18 20:59 12/21/17 20:49 Memantine (Namenda) 10 mg BID ORAL 12/21/17 18:00 01/20/18 17:59 12/23/17 17:44 Morphine Sulfate (Morphine Sulfate) 2 mg Q4H PRN IVP Moderate Pain (Pain Scale 4-6) 12/21/17 18:00 12/27/17 17:59 Ondansetron HCl (Zofran) 4 mg Q6H PRN IVP Nausea & Vomiting 12/21/17 18:00 01/19/18 17:59 Phenazopyridine HCl (Pyridium) 100 mg DAILYPRN PRN ORAL dysuria 12/21/17 18:00 01/20/18 17:59 Polyethylene Glycol (Miralax) 17 gm DAILYPRN PRN ORAL Constipation 12/21/17 18:00 01/20/18 17:59 Tamsulosin HCl (Flomax) 0.4 mg BEDTIME ORAL 12/21/17 21:00 01/20/18 20:59 12/23/17 20:39 Temazepam (Restoril) 15 mg HSPRN PRN ORAL Insomnia 12/21/17 21:00 12/28/17 20:59 Vancomycin HCl (Vanco rx to dose) 1 ea DAILY PRN MISC Per rx protocol 12/22/17 07:15 01/21/18 07:14 Vancomycin/Sodium Chloride 250 ml @ 166.667 mls/hr Q12H IVPB 12/23/17 23:00 12/28/17 22:59 12/23/17 23:10 Peter Clement MD Dec 24, 2017 08:39
[2017-12-24 08:48] LABS: ALANINE AMINOTRANSFERASE 45 U/L (12-78); ALBUMIN 2.4 G/DL (3.4-5.0); ALBUMIN/GLOBULIN RATIO 0.6 (1.0-2.7); ALKALINE PHOSPHATASE 86 U/L (46-116); ANION GAP 11 mmol/L (5-15); ASPARTATE AMINO TRANSFERASE 28 U/L (15-37); BILIRUBIN,TOTAL 0.4 MG/DL (0.2-1.0); BLOOD UREA NITROGEN 19 mg/dL (7-18); CALCIUM 9.1 MG/DL (8.5-10.1); CARBON DIOXIDE 24 MMOL/L (21-32); CHLORIDE 109 MMOL/L (98-107); CREATININE 0.9 MG/DL (0.55-1.30); POTASSIUM 3.5 MMOL/L (3.5-5.1); SODIUM 144 MMOL/L (136-145)
[2017-12-24] MEDS: Heparin 5000 units/ml inj SUBQ SCH (09:00)
[2017-12-24] MEDS: Donepezil 10mg tab ORAL SCH (09:02)
[2017-12-24] MEDS: Memantine 10mg tab ORAL SCH ×2 (09:02→18:17)
--- NOTE | 2017-12-24 10:29 | Physician Query ---
--------- THIS DOCUMENT IS A PERMANENT PART OF THE MEDICAL RECORD --------- PLEASE COMPLETE DOCUMENT BEFORE SIGNING Dear Dr. Padgett Date: 2017 [employer] Name: Dominic Pacheco [employer] Phone # [phone] Exercise your independent professional judgment when responding to query. Question asked do not imply a particular answer is desired/expected. Clinical Documentation States: "Altered Mental Status" documented in H&P and progress notes. Patient admitted with sepsis and UTI. Clinical Findings Show: Glucose: 152 Please indicate the nature and chronicity of the condition below: [ ] Metabolic Encephalopathy [ ] Toxic Encephalopathy [ ] Toxic - Metabolic Encephalopathy [ ] Progressive Encephalopathy [ ] Encephalopathy, Other [ ] Other: [ ] Not Applicable Severity [ ] Acute [ ] Chronic [ ] Acute on Chronic [ ] Unable to determine Condition Present on Admission: [ ] Yes [ ] No [ ] Clinically Undeterminable Please also document in your Progress Notes and/or Discharge Summary and indicate if the condition was present on admission. Mukund LEED
[2017-12-24] MEDS: Vancomycin 750mg/NS 250ml IVPB SCH (11:05)
[2017-12-24 12:00] VITALS: BP 146/72
[2017-12-24] MEDS ORDERED: cefTRIAXone 1 GM in D5W 55 ML IVPB SCH (13:00)
[2017-12-24] MEDS ORDERED: LEVOFLOXACIN500 MG ORAL (13:33)
--- NOTE | 2017-12-24 13:34 | Pulmonology Progress Note ---
Assessment/Plan Problems: (1) COPD (chronic obstructive pulmonary disease) (2) Sepsis (3) Prostate cancer (4) Pyelonephritis (5) Dementia (6) Chronic anemia Assessment/Plan improving ID note reviewed pt could go home with oral abx PSA noted, pt has known prostate cancer symptomatic treatment check cultures f/u renal function respiratory treatment dvt prophylaxis Subjective ROS Limited/Unobtainable: No Constitutional: Reports: no symptoms HEENT: Repors: no symptoms Respiratory: Reports: no symptoms Allergies: Coded Allergies: No Known Allergies (Unverified , 12/20/17) Objective Last 24 Hour Vital Signs Date Time Temp Pulse Resp B/P (MAP) Pulse Ox O2 Delivery O2 Flow Rate FiO2 12/24/17 12:00 98.0 78 18 146/72 (96) 98 98.0 12/24/17 09:00 Room Air 12/24/17 08:00 96.6 75 18 136/69 (91) 95 96.6 12/24/17 08:00 97.4 75 18 136/69 (91) 95 97.4 12/24/17 04:40 78 150/74 (99) 12/24/17 04:14 97.4 62 18 99 97.4 12/24/17 00:39 98.1 82 18 143/79 (100) 97 98.1 12/23/17 21:41 82 20 Room Air 21 12/23/17 21:36 79 152/75 (100) 12/23/17 20:40 85 162/73 (102) 12/23/17 20:30 Room Air 12/23/17 20:07 98.0 90 18 168/79 (108) 98 98.0 12/23/17 16:00 98.6 78 18 141/68 (92) 97 98.6 78 Intake and Output 12/23/17 12/24/17 19:00 07:00 Intake Total 700 ml 250.000 ml Balance 700 ml 250.000 ml Intake Oral 480 ml IV Total 220 ml 250.000 ml # Voids 2 # Bowel Movements 2 General Appearance: WD/WN HEENT: atraumatic Respiratory/Chest: chest wall non-tender, lungs clear Cardiovascular: normal peripheral pulses, regular rhythm Abdomen: normal bowel sounds, no organomegaly Extremities: no cyanosis, no clubbing Microbiology Date/Time Source Procedure Growth Status 12/22/17 12:00 Blood Blood Culture - Preliminary NO GROWTH AFTER 24 HOURS Resulted 12/22/17 11:50 Blood Blood Culture - Preliminary NO GROWTH AFTER 24 HOURS Resulted Laboratory Tests 12/23/17 21:15: Vancomycin Level Trough 9.3 12/23/17 22:48: Stool Occult Blood Negative 12/24/17 06:30: White Blood Count 3.8L, Red Blood Count 3.98L, Hemoglobin 8.9L, Hematocrit 29.4L , Mean Corpuscular Volume 74L, Mean Corpuscular Hemoglobin 22.3L, Mean Corpuscular Hemoglobin Concent 30.1L, Red Cell Distribution Width 20.0H, Platelet Count 146L, Mean Platelet Volume 6.5, Neutrophils (%) (Auto) 68.1, Lymphocytes (%) (Auto) 21.4, Monocytes (%) (Auto) 7.7, Eosinophils (%) (Auto) 2.1, Basophils (%) (Auto) 0.7, Sodium Level 144, Potassium Level 3.5, Chloride Level 109H, Carbon Dioxide Level 24, Anion Gap 11, Blood Urea Nitrogen 19H, Creatinine 0.9, Estimat Glomerular Filtration Rate , Glucose Level 104, Calcium Level 9.1, Phosphorus Level 2.1L, Magnesium Level 2.0, Total Bilirubin 0.4, Aspartate Amino Transf (AST/SGOT) 28, Alanine Aminotransferase (ALT/SGPT) 45, Alkaline Phosphatase 86, Total Protein 6.5, Albumin 2.4L, Globulin 4.1, Albumin/ Globulin Ratio 0.6L Current Medications Medications (Trade) Dose Ordered Sig/Margarita Route PRN Reason Start Time Stop Time Status Last Admin Dose Admin Acetaminophen (Tylenol) 650 mg Q4H PRN ORAL T>100.5 12/21/17 17:30 01/19/18 17:29 12/21/17 20:48 Acetaminophen (Tylenol) 650 mg Q4H PRN RECTAL Mild Pain (Pain Scale 1-3) 12/21/17 17:15 01/19/18 17:14 Albuterol/ Ipratropium (Albuterol/ Ipratropium) 3 ml Q4H PRN HHN Shortness of Breath 12/21/17 18:00 12/25/17 17:59 Ceftriaxone Sodium 1 gm/ Dextrose 55 ml @ 110 mls/hr DAILY IVPB 12/24/17 13:00 12/31/17 12:59 Donepezil HCl (Aricept) 10 mg DAILY ORAL 12/22/17 09:00 01/21/18 08:59 12/24/17 09:02 Heparin Sodium (Porcine) (Heparin 5000 units/ml) 5,000 units EVERY 12 HOURS SUBQ 12/21/17 21:00 01/19/18 20:59 12/21/17 20:49 Memantine (Namenda) 10 mg BID ORAL 12/21/17 18:00 01/20/18 17:59 12/24/17 09:02 Morphine Sulfate (Morphine Sulfate) 2 mg Q4H PRN IVP Moderate Pain (Pain Scale 4-6) 12/21/17 18:00 12/27/17 17:59 Ondansetron HCl (Zofran) 4 mg Q6H PRN IVP Nausea & Vomiting 12/21/17 18:00 01/19/18 17:59 Phenazopyridine HCl (Pyridium) 100 mg DAILYPRN PRN ORAL dysuria 12/21/17 18:00 01/20/18 17:59 Polyethylene Glycol (Miralax) 17 gm DAILYPRN PRN ORAL Constipation 12/21/17 18:00 01/20/18 17:59 Tamsulosin HCl (Flomax) 0.4 mg BEDTIME ORAL 12/21/17 21:00 01/20/18 20:59 12/23/17 20:39 Temazepam (Restoril) 15 mg HSPRN PRN ORAL Insomnia 12/21/17 21:00 12/28/17 20:59 Marisol Purdy MD Dec 24, 2017 13:34
[2017-12-24 16:00] VITALS: BP 146/73
[2017-12-24 16:15] VITALS: BP 136/69
--- NOTE | 2017-12-24 19:34 | Internal Med Progress Note ---
Subjective Date of Service: Dec 24, 2017 Physician Name Kishan Padgett Attending Physician Edgar Kirk MD Current Medications Medications (Trade) Dose Ordered Sig/Margarita Route PRN Reason Start Time Stop Time Status Last Admin Dose Admin Acetaminophen (Tylenol) 650 mg Q4H PRN ORAL T>100.5 12/21/17 17:30 01/19/18 17:29 12/21/17 20:48 Acetaminophen (Tylenol) 650 mg Q4H PRN RECTAL Mild Pain (Pain Scale 1-3) 12/21/17 17:15 01/19/18 17:14 Albuterol/ Ipratropium (Albuterol/ Ipratropium) 3 ml Q4H PRN HHN Shortness of Breath 12/21/17 18:00 12/25/17 17:59 Ceftriaxone Sodium 1 gm/ Dextrose 55 ml @ 110 mls/hr DAILY IVPB 12/24/17 13:00 12/31/17 12:59 12/24/17 14:12 Donepezil HCl (Aricept) 10 mg DAILY ORAL 12/22/17 09:00 01/21/18 08:59 12/24/17 09:02 Heparin Sodium (Porcine) (Heparin 5000 units/ml) 5,000 units EVERY 12 HOURS SUBQ 12/21/17 21:00 01/19/18 20:59 12/21/17 20:49 Memantine (Namenda) 10 mg BID ORAL 12/21/17 18:00 01/20/18 17:59 12/24/17 18:17 Morphine Sulfate (Morphine Sulfate) 2 mg Q4H PRN IVP Moderate Pain (Pain Scale 4-6) 12/21/17 18:00 12/27/17 17:59 Ondansetron HCl (Zofran) 4 mg Q6H PRN IVP Nausea & Vomiting 12/21/17 18:00 01/19/18 17:59 Phenazopyridine HCl (Pyridium) 100 mg DAILYPRN PRN ORAL dysuria 12/21/17 18:00 01/20/18 17:59 Polyethylene Glycol (Miralax) 17 gm DAILYPRN PRN ORAL Constipation 12/21/17 18:00 01/20/18 17:59 Tamsulosin HCl (Flomax) 0.4 mg BEDTIME ORAL 12/21/17 21:00 01/20/18 20:59 12/23/17 20:39 Temazepam (Restoril) 15 mg HSPRN PRN ORAL Insomnia 12/21/17 21:00 12/28/17 20:59 Allergies: Coded Allergies: No Known Allergies (Unverified , 12/20/17) ROS Limited/Unobtainable: Yes Subjective 87 YO M admitted with altered mental status. Now UTI and sepsis. Cover for Int Bernardo-Dr Kirk Objective Last Vital Signs Date Time Temp Pulse Resp B/P (MAP) Pulse Ox O2 Delivery O2 Flow Rate FiO2 12/24/17 16:00 98.0 76 18 146/73 (97) 97 98.0 12/24/17 14:42 Room Air 21 Laboratory Tests Test 12/23/17 21:15 12/23/17 22:48 12/24/17 06:30 Vancomycin Level Trough 9.3 ug/mL (5.0-12.0) Stool Occult Blood Negative (NEGATIVE) White Blood Count 3.8 K/UL (4.8-10.8) L Red Blood Count 3.98 M/UL (4.70-6.10) L Hemoglobin 8.9 G/DL (14.2-18.0) L Hematocrit 29.4 % (42.0-52.0) L Mean Corpuscular Volume 74 FL (80-99) L Mean Corpuscular Hemoglobin 22.3 PG (27.0-31.0) L Mean Corpuscular Hemoglobin Concent 30.1 G/DL (32.0-36.0) L Red Cell Distribution Width 20.0 % (11.6-14.8) H Platelet Count 146 K/UL (150-450) L Mean Platelet Volume 6.5 FL (6.5-10.1) Neutrophils (%) (Auto) 68.1 % (45.0-75.0) Lymphocytes (%) (Auto) 21.4 % (20.0-45.0) Monocytes (%) (Auto) 7.7 % (1.0-10.0) Eosinophils (%) (Auto) 2.1 % (0.0-3.0) Basophils (%) (Auto) 0.7 % (0.0-2.0) Sodium Level 144 MMOL/L (136-145) Potassium Level 3.5 MMOL/L (3.5-5.1) Chloride Level 109 MMOL/L (98-107) H Carbon Dioxide Level 24 MMOL/L (21-32) Anion Gap 11 mmol/L (5-15) Blood Urea Nitrogen 19 mg/dL (7-18) H Creatinine 0.9 MG/DL (0.55-1.30) Estimat Glomerular Filtration Rate mL/min (>60) Glucose Level 104 MG/DL (74-106) Calcium Level 9.1 MG/DL (8.5-10.1) Phosphorus Level 2.1 MG/DL (2.5-4.9) L Magnesium Level 2.0 MG/DL (1.8-2.4) Total Bilirubin 0.4 MG/DL (0.2-1.0) Aspartate Amino Transf (AST/SGOT) 28 U/L (15-37) Alanine Aminotransferase (ALT/SGPT) 45 U/L (12-78) Alkaline Phosphatase 86 U/L (46-116) Total Protein 6.5 G/DL (6.4-8.2) Albumin 2.4 G/DL (3.4-5.0) L Globulin 4.1 g/dL Albumin/Globulin Ratio 0.6 (1.0-2.7) L Microbiology Date/Time Source Procedure Growth Status 12/22/17 12:00 Blood Blood Culture - Preliminary NO GROWTH AFTER 24 HOURS Resulted 12/22/17 11:50 Blood Blood Culture - Preliminary NO GROWTH AFTER 24 HOURS Resulted Intake and Output 12/23/17 12/24/17 19:00 07:00 Intake Total 700 ml 250.000 ml Balance 700 ml 250.000 ml Intake Oral 480 ml IV Total 220 ml 250.000 ml # Voids 2 # Bowel Movements 2 Objective General Appearance: WD/WN, no apparent distress, alert EENT: PERRL/EOMI, normal ENT inspection Neck: non-tender, normal alignment, supple, normal inspection Cardiovascular: normal peripheral pulses, normal rate, regular rhythm, no gallop/murmur, no JVD Respiratory/Chest: chest wall non-tender, lungs clear, normal breath sounds, no respiratory distress, no accessory muscle use Abdomen: normal bowel sounds, non tender, soft, no organomegaly, no mass Extremities: normal range of motion, non-tender Neurologic: 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 Coli. Continue cefepime per ID (5) Sepsis Assessment & Plan: E. Coli and coag neg staph. Cont cefepime and vanco per ID Status: progressing Kishan Padgett MD Dec 24, 2017 19:34
--- NOTE | 2017-12-28 08:04 | Discharge Summary ---
Discharge Summary Discharge Summary _ DATE OF ADMISSION: 12/20/2017 DATE OF DISCHARGE: 12/24/2017 REASON FOR ADMISSION: 87 years old male with history of COPD, prostate cancer, recurrent UTI, hypertension, was brought from home due to altered level of consciousness. According to his , patient was less responsive than usual. . At the baseline patient had severe dementia, but able to verbalize certain things. Patient by himself was unable to provide any history. Upon evaluation patient was tachycardic and febrile. Urinalysis with evidence of UTI. Blood pressure 150/74. Laboratory workup revealed no leukocytosis, with neutrophils of 85%. Albumin 3.1 Stable electrolytes, BUN 25 [address] of the head revealed chronic age-related changes, but was negative for acute intracranial pathology. Old bilateral basal ganglia lacunar infarcts noted. Chest x-ray revealed no acute cardiopulmonary pathology. Patient admitted with diagnosis of sepsis, urinary tract infection/ pyelonephritis, chronic anemia , history of prostate cancer ,COPD, altered mental status, Alzheimer dementia CONSULTANTS: pulmonary Dr. Purdy ID specialist Dr. Fournier psychiatrist [facility]RSE: Patient admitted. Patient started on IV fluids and empiric antibiotic. Infectious disease doctor closely followed. Initial blood culture revealed Escherichia coli . Urine culture revealed Escherichia coli. Antibiotic regimen optimized based on culture. Pyridium provided for comfort. Repeated blood culture were negative. Renal ultrasound revealed mild to moderate left hydronephrosis. Fever resolved , no leukocytosis. Infectious disease doctor recommended continue antibiotics till 01/02/2018. Patient was discharged on oral antibiotics to complete the course. DVT prophylaxis provided. Supplemental oxygen titrated to keep pulse oximetry above 92%. Pulmonary toilet was on standby as needed. Senior Loan Officer closely followed. No evidence of bronchospasm or respiratory distress. Home medications were continued. Anemia workup revealed evidence of anemia of chronic disease and folate deficiency. Patient started on folic acid supplement. PSA elevated in patients with a known history of prostate cancer. CEA within normal limits. Stool for occult blood was negative. Patient was transfused with 1 unit of packed red blood cells. Prior to discharge hemoglobin 8.9 , and hematocrit 29.4. Blood pressure was closely monitored. Supportive care provided. Bowel regimen instituted. Psychiatrist seen and evaluated patient , and diagnosed patient with encephalopathy, secondary to metabolic factor or toxin . Reality orientation and supportive therapy provided. Acute encephalopathy was likely secondary to sepsis. Prior to discharge patient's mental status back to baseline Patient clinically improved and was ready for discharge home with home health services to follow FINAL DIAGNOSES: Sepsis with Escherichia coli bacteremia ( secondary to UTI) Complicated UTI with Escherichia coli/pyelonephritis History of recurrent UTI Acute encephalopathy likely secondary to sepsis on chronic Alzheimer dementia - resolved Hypertension History of prostate cancer COPD Anemia of chronic disease Folate deficiency DISCHARGE MEDICATIONS: See Medication Reconciliation list. DISCHARGE INSTRUCTIONS: Patient was discharged home with home health services. Follow up with primary care provider in one week. I have been assigned to dictate discharge summary for this account. I was not involved in the patient's management. Aury Cannon NP Dec 28, 2017 08:04
== END 2017-12-24 20:23 | disposition home health service (06) | DRG 871 ==
LOC: EDBD 13:00 → EMR 13:25 → 2E 14:38 → EDBEDREQSVC 14:45 → EDBEDREQ 14:45 → 4E 12-21 17:00 → 3E 12-23 14:44
PROC: 30233N1 Transfusion of Nonautologous Red Blood Cells into Peripheral Vein, Percutaneous Approach (ICD-10-PCS; principal; 2017-12-21)
DX: A41.9 Sepsis, unspecified organism (principal); G93.41 Metabolic encephalopathy; N12 Tubulo-interstitial nephritis, not specified as acute or chronic; N39.0 Urinary tract infection, site not specified; G30.9 Alzheimer's disease, unspecified; F02.80 Dementia in other diseases classified elsewhere, unspecified severity, without behavioral disturbance, psychotic disturbance, mood disturbance, and anxiety; J44.9 Chronic obstructive pulmonary disease, unspecified; I10 Essential (primary) hypertension; E86.0 Dehydration; B96.20 Unspecified Escherichia coli [E. coli] as the cause of diseases classified elsewhere; C61 Malignant neoplasm of prostate; Z92.3 Personal history of irradiation; D63.8 Anemia in other chronic diseases classified elsewhere; E53.8 Deficiency of other specified B group vitamins
CPT/HCPCS: 36415; 51702; 70450; 71045; 76770; 80053; 80202; 81003; 82270; 82378; 82550; 82553; 82607; 82746; 83540; 83550; 83605; 83615; 83735; 84100; 84153; 84484; 85007; 85025; 85044; 85060; 85610; 85651; 85730; 86850; 86900; 86901; 86920; 87040; 87081; 87086; 87181; 93005; 94664; 99291; J7620